=== PATIENT | female | born 1995 | race Caucasian/White ===

== ENCOUNTER 2025-03-30 09:25 | Outpatient (AMB) | payer BC, MEDICAID, SELFPAY ==
--- NOTE | 2025-03-30 09:50 | OBCLNT_ITS ---
Vital Signs 03/30/25 09:51 Height 1.68 m Height Method Stated Weight 107.275 kg Weight Measurement Method Standing Scale BMI 38.1 BP 156/93 H Blood Pressure Source Automatic Cuff Blood Pressure Location Left Upper Arm Position Sitting Respiration 18 Pulse 81 Pulse Source Monitor Temp 96.7 F L Temp Source Oral Pulse Oximetry (%) 99 Oxygen Delivery Method Room Air Allergies/Home Meds Allergies & Medications Allergies No Known Allergies Allergy (Verified 03/30/25 09:52) Medication Reconciliation aspirin 81 mg capsule 81 mg PO QDAY 09/19/23 [History Confirmed 03/30/25] labetalol 300 mg tablet 300 mg PO BID 09/19/23 [History Confirmed 03/30/25] vits no.124-ferrous fum 27 mg iron-folic acid 800 mcg tablet ( Vitamin) tab 10/30/23 [History Confirmed 03/30/25] labetalol 300 mg tablet 300 mg PO BID #60 tabs 11/04/23 [Rx Confirmed 03/30/25] aspirin 81 mg tablet,delayed release (Adult Aspirin Regimen) 81 mg PO QDAY 30 days #30 tabs 03/30/25 [Rx] blood pressure monitor #1 ea 03/30/25 [Rx] doxylamine 10 mg-pyridoxine (vit B6) 10 mg tablet,delayed release (Diclegis) 1 tab PO BID 30 days #60 tabs 03/30/25 [Rx] Intake Visit Data Collection New Patient or Established: Established Patient (seen at [facility] within 3 years) Reason for Visit:: OBI Seen by Clinical Staff ONLY (RN/MA): No 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 1. Little interest or pleasure in doing things: not at all 2. Feeling down, depressed, or hopeless: not at all Total score: 0 PHQ-9 3. Trouble falling or staying asleep, or sleeping too much: Not at all 4. Feeling tired or having little energy: Not at all 5. Poor appetite or overeating: Not at all 6. Feeling bad about yourself - or that you are a failure or have let yourself or your family down: Not at all 7. Trouble concentrating on things, such as reading the newspaper or watching television: Not at all 8. Moving or speaking so slowly that other people could have noticed? - Or the opposite - being so fidgety or restless that you have been moving around a lot more than usual: not at all 9. Thoughts that you would be better off or of hurting yourself in some way: Not at all Total score: 0 If you checked off any problems, how difficult have these problems made it for you to do your work, take care of things at home, or get along with other people?: not difficult at all Source: Developed by Drs. Chilango Danielle, Fabi Rod, Austen Milian and colleagues, with an educational caryl from [employer]. 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 Abuse History Do You Feel Safe at Home: Yes Past Medical History Past Medical History Have you ever been diagnosed with any of the following: Neurological Problems Seizures: No Cardiology Problems Congestive Heart Failure: No Respiratory Problems Chronic Obstructive Pulmonary Disease (COPD): No Stomache/Intestinal Problems Hepatitis: No Gall Bladder Disease: Yes Genital/Urinary Problems Renal Disease: No Reproductive Problems Previous Pregnancies: Yes Endocrine Problems Diabetes Mellitus Type 1: No Diabetes Mellitus Type 2: No Other Problems Hospitalization: No Shingles: No Falls: No Blood Transfusions: No Blood Transfusion Reaction: No Anesthesia Reactions: No Chemotherapy: No Radiation Therapy: No MRSA: No Chicken Pox: Yes Measles: No Mumps: No Cancer: No History of Present Illness HPI Narrative 30 yo for OBI. happy about unplanned . FOB involved. lmp 01/21/25. EDC 10/27/25.IUP 10 week. c/o spotting 1 week. No Bleeding today. chronic hypertention, patient started on labetolol 100 bid and comfirmation visit. stopped taking labetolol because she felt dizzy and light headed. no social habit,no surgery OB Initial Visit OB Flowsheet OB Flowsheet Initial Weight: Not Recorded Date -?-?-?-?-?-?-?-?-?-?-?-?- EGA Weight Edema CTX Effacement BP Fundal ht Pres Dilation Effacement Station Visit Note Alb Glu FHR Mov 03/30/25 -?-?-?-?-?-?-?-?-?-?-?-?- 9w 5d 107.275 kg absent absent 156/93 8.0 30 yo with CHTN for OBC. Denies sab complaints at this time. happy about . advised patient to continue taking labetolol 100 bid. I ordered BP kit and advised patient to check BP at home and work, note for no lifting over 25 pounds, no climbing. OB panel, HCG, HA1c, cmp, .continue PNV, rest,sab precaution, sono for viability, rtc 3 week, NIPT and carrier screen. rtc 3 week absent Menstrual History Menstrual reliability: definite Flow: normal Menstrual regularity: regular Monthly: Yes Age at menarche: 13 On control pills at conception: No OB History : 3 Para: 2 Hx # Pregnancies: 0 Hx Total # of Abortions (Spontaneous & Elective): 0 # of Living Children: 2 Delivery History 1st : date: 03/07/17 sex: male Delivery type: vaginal weight (lbs): 2267.962 g History of depression before or after : No 2nd : date: 11/03/23 sex: male Delivery type: vaginal weight (lbs): 3175.147 g History of depression before or after : No Infection History & Risk Evaluation History of STDs: none HIV risk evaluation: low risk Hepatitis B risk evaluation: low risk Patient or partner has history of Genital Herpes: No Varicella/chicken pox status: immunized Genetic Screening & History Genetic Screening/Teratology Counseling - Includes patient, baby's father, or anyone in either family with: 1. Patient's age 35 years or older as of estimated date of delivery: No 2. Thalassemia (Khmer, Iranian, Mediterranean, or Background); MCV less than 80: No 3. Neural Tube Defect (Meningomyelocele, Spina Bifida, or Anencephaly): No 4. Congenital Heart Defect: No 5. Down Syndrome: No 6. Cosmo-Sachs (Ashkenazi Methodist, Cajun, Swazi [place]): No 7. Asha Disease (Ashkenazi Methodist): No 8. Familial Dysautonomia (Ashkenazi Methodist): No 9. Sickle Cell Disease or Trait (): No 10. Hemophilia or other blood disorders: No 11. Muscular Dystrophy: No 12. Cystic Fibrosis: No 13. Bethel's Chorea: No 14. Mental Retardation/Autism: No 15. Other inherited genetic or chromosomal disorder: No 16. Maternal Metabolic Disorder (EG,TYPE 1 Diabetes, PKU): No 17. Patient or baby's father had a child with defects not listed above: No 18. Recurrent loss or a stillbirth: No 19. Medications (including supplements, vitamins, herbs or otc drugs)/illicit/recreational drugs/alcohol since last menstrual period: No Infection History 1. Live with someone with TB or exposed to TB: No 2. Rash or viral illness since last menstrual period: No 3. Hepatitis B,C: No Other (see comments) Source: [employer] Review of Systems Review of Systems Systems Reviewed: All systems reviewed, normal except as documented Exam General Limitations: no limitations General Appearance: alert, in no apparent distress, comfortable, cooperative, healthy appearing, well developed and well groomed Head Head exam: atraumatic, normocephalic and normal inspection Chest Chest inspection: Present normal inspection and symmetric chest wall rise Resp Respiratory exam: Present normal lung sounds bilaterally Card Cardiovascular exam: Present regular rate, normal rhythm and normal heart sounds Abdominal Abdominal exam: Present soft and normal bowel sounds Psych Psychiatric exam: Present normal affect and normal mood Assessment & Plan Diagnosis / Problem List (1) Encounter for supervision of high risk in first trimester, antepartum: Status: Acute (2) Chronic benign essential hypertension, antepartum: Status: Acute Plan Continue labetalol 100 twice daily. Monitor blood pressure at home. BP kit was ordered for patient. Patient advised to also check blood pressure while at work. Note for light duty including no lifting over 25 pounds and no climbing. OB panel, hCG, CMP, hemoglobin A1c drawn today. NIPT and carrier screens drawn today. TSH next visit. Ultrasound scheduled for viability and dating. Return in 3 weeks OB check Additional Plan Follow Up: 3 Weeks (obc) Office Procedures OB Clinic LOC & Office Proc's Nursing/Assessment Patient Status: Established Patient OB Clinic Nursing Assessment: BP Monitoring, Medication Reconciliation, Update PMH in EMR and Vital Signs OB Clinic Coordination of Care: Consent,records obtained, informed consent, Education Simp Pt/Fam, Lab and Imaging orders and Staff clarify orders Special Needs: Heart tones Established Patient Charge Established Patient Point Assignment: 120 Established Patient Point Charge: EP Level 4 (120-155)
[2025-03-30 09:51] VITALS: BP 156/93; PULSE 81; RESP 18; TEMP 35.9; O2SAT 99; BMI 38.1
== END 2025-03-30 10:20 | disposition home or self-care (01) ==
LOC: HODSOBC 09:25
PROVIDERS: PCP Family Medicine; Referring Provider Family Medicine; Supervising Provider Advanced Practice Midwife; Visit Provider Advanced Practice Midwife
DX: O09.891 Supervision of other high risk pregnancies, first trimester (principal); Z3A.09 9 weeks gestation of pregnancy; O10.011 Pre-existing essential hypertension complicating pregnancy, first trimester; Z79.899 Other long term (current) drug therapy; Z79.82 Long term (current) use of aspirin
CPT/HCPCS: 99214; G0463

== ENCOUNTER → 2025-03-30 | Outpatient (CLI) | payer BC, MEDICAID, SELFPAY ==
[2025-03-30 11:51] LABS: Collection Type, Urine Clean Catch; WBC,Urine 0 /hpf (0-5)
[2025-03-30 12:03] LABS: Basophils % (Auto) 0 % (0-2.5); Eosinophils # (Auto) 0.1 Thou/mm3 (0.0-0.5); Eosinophils % (Auto) 2 % (0-10); Hemoglobin 13.5 g/dL (12.0-16.0); Immature Granulocytes % (Auto) 0 % (0-0); Immature Granulocytes Auto 0.03 Thou/mm3 (0.00-0.00); Lymphocytes # (Auto) 1.5 Thou/mm3 (1.0-4.8); Lymphocytes % (Auto) 21 % (10-50); Mean Corpuscular HGB Conc 35.5 g/dl (31.0-37.0); Mean Corpuscular Hemoglobin 30.2 pg (25.0-35.0); Mean Corpuscular Volume 85 fL (80-100); Monocytes # (Auto) 0.4 Thou/mm3 (0.0-0.8); Monocytes % (Auto) 5 % (0-12); Neutrophils # (Auto) 5.3 Thou/mm3 (1.8-7.7); Neutrophils % (Auto) 71 % (37-80); Nucleated Red Blood Cell % 0 /100 WBC (0); Platelet Count 302 Thou/mm3 (140-440); RDW Standard Deviation 38.8 fL (36.4-46.3); Red Blood Count 4.47 Miln/mm3 (4.00-5.20); White Blood Count 7.5 Thou/mm3 (3.6-11.0)
[2025-03-30 12:13] LABS: Glucose Estimated Average 94 mg/dL (80-131); Hemoglobin A1C 4.9 % Hgb (4.8-6.0)
[2025-03-30 12:20] LABS: Alanine Aminotransferase 24 U/L (10-49); Albumin/Globulin Ratio 1.6 (1.2-2.2); Alkaline Phosphatase 68 U/L (46-116); Anion Gap 7 (7-16); Aspartate Amino Transferase 11 U/L (0-34); BUN/Creatinine Ratio 10 Ratio (12-20); Bilirubin,Total 0.7 mg/dL (0.3-1.2); Blood Urea Nitrogen 6 mg/dL (9-23); Calcium 9.2 mg/dL (8.3-10.6); Calcium (Corrected) 9.2 mg/dL (8.5-10.1); Carbon Dioxide 24.9 mMol/L (20.0-31.0); Chloride 109 mMol/L (98-107); Creatinine (Component) 0.6 mg/dL (0.6-1.3); Globulin 2.5 gm/dL (2.3-3.5); Glucose 92 mg/dL (74-106); Osmolality,Calculated 278 (275-295); Potassium 4.5 mMol/L (3.4-5.1); Sodium 141 mMol/L (136-145); Total Protein 6.5 gm/dL (5.7-8.2); eGFR > 60 See Note
[2025-03-30 12:31] LABS: Bacteria,Urine Rare; Bilirubin,Urine Negative (Negative); Blood,Urine Negative (Negative); Clarity,Urine Clear (Clear/Hazy); Color,Urine Lt-Yellow (Lt Yel-Yel); Culture Indicated,Urine Not Indicated; Glucose, Urine Negative (Negative); Ketones,Urine Negative (Negative); Leukocyte Esterase,Urine Negative (Negative); Nitrite,Urine Negative (Negative); PH,Urine 6.5 (5.0-7.0); Protein,Urine Negative (Neg - Trace); RBC,Urine 2 /hpf (0-3); Specific Gravity,Urine 1.007 (1.001-1.035); Squamous Epithelial Cell,Urine 3 /hpf (0-5); Urobilinogen,Urine Negative mg/dL (0.0-1.0)
[2025-03-30 12:57] LABS: Hepatitis B Surface Antigen Non Reactive (Non React); Hepatitis C Antibody Non Reactive (Non React); Rubella, IgG Antibody Reactive (Immune)
[2025-03-30 13:01] LABS: Syphilis Nonreactive (Nonreactive)
[2025-03-30 14:27] LABS: Glucose,1 Hour PP 50gm Dose 109 mg/dL (80-140)
[2025-03-30 15:58] LABS: Chlamydia trachomatis PCR Negative (Not Detect); Neisseria Gonorrhoeae DNA PCR Negative (Not Detect); Trichomonas Negative (Negative)
[2025-04-02 22:06] LABS: HCV RNA, PCR <15 NOT DETECTED IU/mL
[2025-04-04 07:24] LABS: HCV RNA, PCR Log IU <1.18 NOT DETECTED Log IU/mL; HIV Ag/Ab, 4th Gen NON-REACTIVE; IgG, Serum* 1160 mg/dL (600-1640)
== END | disposition home or self-care (01) ==
PROVIDERS: PCP Family Medicine; Referring Provider Advanced Practice Midwife; Visit Provider Advanced Practice Midwife
DX: Z34.81 Encounter for supervision of other normal pregnancy, first trimester (principal)
CPT/HCPCS: 36415; 80053; 81001; 82784; 82950; 83036; 85025; 86762; 86780; 86803; 86900; 86901; 87340; 87389; 87491; 87522; 87591; 87661

== ENCOUNTER 2025-04-28 09:05 | Outpatient (AMB) | payer MEDICAID, SELFPAY ==
[2025-04-28 09:14] VITALS: BP 143/79; PULSE 80; RESP 18; TEMP 36.2; O2SAT 98; BMI 36.3
--- NOTE | 2025-04-28 09:14 | OBCLNT_ITS ---
Vital Signs 04/28/25 09:14 Height 1.68 m Height Method Stated Weight 102.682 kg Weight Measurement Method Standing Scale BMI 36.3 BP 143/79 H Blood Pressure Source Automatic Cuff Blood Pressure Location Left Upper Arm Position Sitting Respiration 18 Pulse 80 Pulse Source Monitor Temp 97.2 F Temp Source Oral Pulse Oximetry (%) 98 Oxygen Delivery Method Room Air Allergies/Home Meds Allergies & Medications Allergies No Known Allergies Allergy (Verified 04/28/25 09:15) Medication Reconciliation aspirin 81 mg capsule 81 mg PO QDAY 09/19/23 [History Confirmed 04/28/25] labetalol 300 mg tablet 300 mg PO BID 09/19/23 [History Confirmed 04/28/25] vits no.124-ferrous fum 27 mg iron-folic acid 800 mcg tablet ( Vitamin) tab 10/30/23 [History Confirmed 04/28/25] labetalol 300 mg tablet 300 mg PO BID #60 tabs 11/04/23 [Rx Confirmed 04/28/25] aspirin 81 mg tablet,delayed release (Adult Aspirin Regimen) 81 mg PO QDAY 30 days #30 tabs 03/30/25 [Rx Confirmed 04/28/25] blood pressure monitor #1 ea 03/30/25 [Rx Confirmed 04/28/25] doxylamine 10 mg-pyridoxine (vit B6) 10 mg tablet,delayed release (Diclegis) 1 tab PO BID 30 days #60 tabs 03/30/25 [Rx Confirmed 04/28/25] labetalol 100 mg tablet 100 mg PO BID 30 days #60 tabs 04/26/25 [Rx Confirmed 04/28/25] Intake Visit Data Collection New Patient or Established: Established Patient (seen at [facility] within 3 years) Reason for Visit:: OBC Seen by Clinical Staff ONLY (RN/MA): No Sheriff Deputy Required: No Do You Feel Safe at Home: Yes Authorities Contacted: N/A PCP or OBGYN visit in last 3 months: Yes Date of Last PCP or OBGYN visit: 03/30/25 Hx Now: Yes Are you currently on any form of Control: No Pain Present Currently: No Pain Scale Used: Gaming-Dixon/Numerical Pain scale:: 0 Smoking Status Smoking Status: Never smoker Questionnaires Covid-19 Vaccine Questionnaire Has patient been vacinated for Covid-19 Have you been vacinated for Covid-19: Yes PHQ-9 PHQ-2 Over the last 2 weeks, how often have you been bothered by any of the following problems? 1. Little interest or pleasure in doing things: not at all PHQ-9 8. Moving or speaking so slowly that other people could have noticed? - Or the opposite - being so fidgety or restless that you have been moving around a lot more than usual: not at all Source: Developed by Drs. Chilango Danielle, Fabi Rod, Austen Milian and colleagues, with an educational caryl from [employer]. 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 Denies sab complaints at this time. happy about . advised patient to continue taking labetolol 100 bid. I ordered BP kit and advised patient to check BP at home and work, note for no lifting over 25 pounds, no climbing. OB panel, HCG, HA1c, cmp, .continue PNV, rest,sab precaution, sono for viability, rtc 3 week, NIPT and carrier screen. rtc 3 week 04/28/25 -?-?-?-?-?-?-?-?-?-?-?-?- 13w 2d 102.682 kg 143/79 absent unknown 12 145 absent denies SOTO,blurred vision,epigatric pain, no SAB complaints, sono for viability, done. results pending TSH, 24hr urine, uric acid, CMP was done, sab precaution reviewed, NIPT and carrier screen, continue labetolol 100 bid and f/u with OB to review management 4 week JORY Calculator Estimated Delivery Date Method Current WG Current Estimate 11/01/25 Ultrasound #1 13w 2d Other Estimates 10/28/25 LMP (Certain) 13w 6d Office Procedures OB Clinic LOC & Office Proc's Nursing/Assessment Patient Status: Established Patient OB Clinic Nursing Assessment: BP Monitoring, Medication Reconciliation, Update PMH in EMR and Vital Signs OB Clinic Coordination of Care: Complex Care and Chronic Disease 1-5, Consent,records obtained, informed consent and Lab and Imaging orders Special Needs: Heart tones Established Patient Charge Established Patient Point Assignment: 120 Established Patient Point Charge: EP Level 4 (120-155) Assessment & Plan Diagnosis / Problem List (1) Chronic benign essential hypertension, antepartum: Status: Acute (2) Encounter for supervision of high risk in first trimester, antepartum: Status: Acute Plan TSH, 24hr Urine, uric acid/cmp was done, NIPT and carrier screen. schedule with MFM for early anatomy scan. continue labetolol bid and sched with OB to evaluate current management. sab precaution. rtc 4 week Additional Plan Follow Up: 4 Weeks (obc)
== END 2025-04-28 09:25 | disposition home or self-care (01) ==
LOC: HODSOBC 09:05
PROVIDERS: PCP Family Medicine; Referring Provider Family Medicine; Supervising Provider Advanced Practice Midwife; Visit Provider Advanced Practice Midwife
DX: O09.891 Supervision of other high risk pregnancies, first trimester (principal); O10.011 Pre-existing essential hypertension complicating pregnancy, first trimester; Z3A.13 13 weeks gestation of pregnancy; Z79.899 Other long term (current) drug therapy; Z79.82 Long term (current) use of aspirin
CPT/HCPCS: 99214; G0463

== ENCOUNTER 2025-05-25 09:21 | Outpatient (AMB) | payer MEDICAID, SELFPAY ==
[2025-05-25 09:46] VITALS: BP 152/92; PULSE 74; RESP 17; TEMP 36.3; O2SAT 99; BMI 36.3
--- NOTE | 2025-05-25 09:46 | OBCLNT_ITS ---
Vital Signs 05/25/25 09:46 Height 1.68 m Height Method Measured Weight 102.625 kg Weight Measurement Method Standing Scale BMI 36.3 BP 152/92 H Blood Pressure Source Automatic Cuff Blood Pressure Location Right Upper Arm Position Sitting Respiration 17 Pulse 74 Pulse Source Monitor Temp 97.3 F Temp Source Temporal Artery Scan Pulse Oximetry (%) 99 Oxygen Delivery Method Room Air Allergies/Home Meds Allergies & Medications Allergies No Known Allergies Allergy (Verified 05/25/25 09:47) Medication Reconciliation vits no.124-ferrous fum 27 mg iron-folic acid 800 mcg tablet ( Vitamin) tab 10/30/23 [History Confirmed 05/25/25] blood pressure monitor #1 ea 03/30/25 [Rx Confirmed 05/25/25] doxylamine 10 mg-pyridoxine (vit B6) 10 mg tablet,delayed release (Diclegis) 1 tab PO BID 30 days #60 tabs 03/30/25 [Rx Confirmed 05/25/25] labetalol 100 mg tablet 100 mg PO BID 30 days #60 tabs 04/26/25 [Rx Confirmed 05/25/25] Intake Visit Data Collection New Patient or Established: Established Patient (seen at [facility] within 3 years) Reason for Visit:: OBC Seen by Clinical Staff ONLY (RN/MA): No Claim Benefit Specialist Required: No Do You Feel Safe at Home: Yes Authorities Contacted: N/A PCP or OBGYN visit in last 3 months: Yes Date of Last PCP or OBGYN visit: 04/28/25 Hx Now: Yes Are you currently on any form of Control: No Pain Present Currently: No Pain Scale Used: Gaming-Dixon/Numerical Pain scale:: 0 Smoking Status Smoking Status: Never smoker Questionnaires Covid-19 Vaccine Questionnaire Has patient been vacinated for Covid-19 Have you been vacinated for Covid-19: No PHQ-9 PHQ-2 Over the last 2 weeks, how often have you been bothered by any of the following problems? 1. Little interest or pleasure in doing things: not at all 2. Feeling down, depressed, or hopeless: not at all Total score: 0 PHQ-9 3. Trouble falling or staying asleep, or sleeping too much: Not at all 4. Feeling tired or having little energy: Not at all 5. Poor appetite or overeating: Not at all 6. Feeling bad about yourself - or that you are a failure or have let yourself or your family down: Not at all 7. Trouble concentrating on things, such as reading the newspaper or watching television: Not at all 8. Moving or speaking so slowly that other people could have noticed? - Or the opposite - being so fidgety or restless that you have been moving around a lot more than usual: not at all 9. Thoughts that you would be better off or of hurting yourself in some way: Not at all Total score: 0 If you checked off any problems, how difficult have these problems made it for you to do your work, take care of things at home, or get along with other people?: not difficult at all Source: Developed by Drs. Chilango Danielle, Fabi Rod, Austen Milian and colleagues, with an educational caryl from [employer]. 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 Patient reports headaches, denies VC, and epigastric pain. - Steph Flower is a 30-year-old female at 17 weeks and 1 day gestation presenting for a routine visit. - Obstetrical history: - Two previous full-term vaginal deliveries - First baby had intrauterine growth restriction (IUGR), weighing 2200 grams - Second baby weighed 3200 grams - Medical history: - Chronic hypertension, managed with labetalol 100 mg twice daily - Has a blood pressure monitoring kit at home - Current : - Estimated due date: October 2025 (based on 82-hxzm-4-day ultrasound on 04/06/2025) - Started care with CNM in this office - Chief complaint: - Reports experiencing headaches, but otherwise feels okay - Has tried Tylenol for headache relief, but was unsure of proper dosage - movement: - Patient reports feeling initial movements Care OB Visit Log OB Flowsheet Initial Weight: Not Recorded Date -?-?-?-?-?-?-?-?-?-?-?-?- EGA Weight BP Alb Glu CTX Pres Fundal ht FHR Mov Dilation Station Effacement Hx Notes Visit Note 03/30/25 -?-?-?-?-?-?-?-?-?-?-?-?- 9w 1d 107.275 kg 156/93 absent 8.0 absen t 30 yo with CHTN for OBC. Denies sab complaints at this time. happy about . advised patient to continue taking labetolol 100 bid. I ordered BP kit and advised patient to check BP at home and work, note for no lifting over 25 pounds, no climbing. OB panel, HCG, HA1c, cmp, .continue PNV, rest,sab precaution, sono for viability, rtc 3 week, NIPT and carrier screen. rtc 3 week 04/28/25 -?-?-?-?-?-?-?-?-?-?-?-?- 13w 2d 102.682 kg 143/79 absent unknown 12 145 absent denies SOTO,blurred vision,epigatric pain, no SAB complaints, sono for viability, done. results pending TSH, 24hr urine, uric acid, CMP was done, sab precaution reviewed, NIPT and carrier screen, continue labetolol 100 bid and f/u with OB to review management 4 week 05/25/25 -?-?-?-?-?-?-?-?-?-?-?-?- 17w 1d 102.625 kg 152/92 absent 137 abse nt at 17w1d, JORY 10/2025. Chronic HTN on labetalol 100mg BID. Reports headaches. Hx IUGR (2200g weight). FHR 137, female fetus. Genetics and pre-eclampsia labs normal. Thyroid low but normal for . Co ntinue labetalol, Tylenol up to 2000mg daily for SOTO, anatomy scan at [facility] on , FU 4 weeks after scan to review results. JORY Calculator Estimated Delivery Date Method Current WG Current Estimate 11/01/25 Ultrasound #1 17w 5d Other Estimates 10/28/25 LMP (Certain) 18w 2d Exam General General Appearance: alert, in no apparent distress and healthy appearing Head Head exam: atraumatic Neck Neck exam: Present normal inspection and trachea midline Chest Chest inspection: Present normal inspection and symmetric chest wall rise External exam: Present normal external exam; Absent tenderness Neuro Neurological exam: Present oriented X3 Psych Psychiatric exam: Present normal affect and normal mood Office Procedures OB Clinic LOC & Office Proc's Nursing/Assessment Patient Status: Established Patient OB Clinic Nursing Assessment: Medication Reconciliation, Update PMH in EMR and Vital Signs OB Clinic Coordination of Care: Complex Care and Chronic Disease 1-5, Consent,records obtained, informed consent, Lab and Imaging orders and Staff clarify orders Special Needs: Heart tones Established Patient Charge Established Patient Point Assignment: 115 Established Patient Point Charge: EP Level 3 (80-115) Assessment & Plan Diagnosis / Problem List (1) Chronic benign essential hypertension, antepartum: Status: Acute Plan Problem List - - Chronic hypertension - Headaches - Intrauterine growth restriction (IUGR) in previous Assessment 30-year-old at 17 weeks 1 day gestation with JORY 10/2025 based on 10w1d ultrasound. Patient has chronic hypertension managed with labetalol 100mg BID. History of IUGR in first (2200g weight). Current notable for reported headaches. Ultrasound performed in office showing normal heart rate of 137 bpm. Genetic testing and pre-eclampsia screening labs reviewed, all within normal limits for . Thyroid function noted to be low but deemed normal for . gender determined to be female. Plan - Continue labetalol 100 mg twice daily for chronic hypertension - Tylenol up to 2000 mg per day for headaches (500 mg extra strength, up to 4 tablets; or 300 mg regular strength, up to 6 tablets) - Follow up appointment in 4 weeks - Attend scheduled anatomy scan at [facility] on the of next month - Schedule next appointment after the to review [facility] ultrasound reports This visit does not meet the criteria for the provided format request. The patient is at 17 weeks and 1 day gestation, which is less than 20 weeks. Additionally, this is not an initial visit. Therefore, the format request is not applicable to this specific visit.
== END 2025-05-25 10:44 | disposition home or self-care (01) ==
LOC: HODSOBC 09:21
PROVIDERS: PCP Obstetrics & Gynecology; Referring Provider Obstetrics & Gynecology; Supervising Provider Obstetrics & Gynecology; Visit Provider Obstetrics & Gynecology
DX: O09.892 Supervision of other high risk pregnancies, second trimester (principal); O10.912 Unspecified pre-existing hypertension complicating pregnancy, second trimester; Z3A.17 17 weeks gestation of pregnancy; Z87.59 Personal history of other complications of pregnancy, childbirth and the puerperium; Z79.899 Other long term (current) drug therapy
CPT/HCPCS: 99213; G0463

== ENCOUNTER 2025-07-06 09:48 | Outpatient (AMB) | payer MEDICAID, SELFPAY ==
[2025-07-06 10:02] VITALS: BP 143/79; PULSE 87; RESP 17; TEMP 37.1; O2SAT 98; BMI 36.3
--- NOTE | 2025-07-06 10:02 | OBCLNT_ITS ---
Vital Signs 07/06/25 10:02 Height 1.68 m Height Method Stated Weight 102.512 kg Weight Measurement Method Standing Scale BMI 36.3 BP 143/79 H Blood Pressure Source Automatic Cuff Blood Pressure Location Right Upper Arm Position Sitting Respiration 17 Pulse 87 Pulse Source Monitor Temp 98.7 F Temp Source Temporal Artery Scan Pulse Oximetry (%) 98 Oxygen Delivery Method Room Air Allergies/Home Meds Allergies & Medications Allergies No Known Allergies Allergy (Verified 09/06/25 09:29) Medication Reconciliation vits no.124-ferrous fum 27 mg iron-folic acid 800 mcg tablet ( Vitamin) tab 10/30/23 [History Confirmed 09/06/25] blood pressure monitor #1 ea 03/30/25 [Rx Confirmed 09/06/25] aspirin 81 mg tablet 162 mg (2 x 81 mg) PO QDAY 90 days #180 tabs 07/06/25 [Rx Confirmed 09/06/25] labetalol 400 mg tablet 400 mg PO BID 30 days #60 tabs 08/18/25 [Rx Confirmed 09/06/25] nifedipine 30 mg tablet,extended release 30 mg PO QDAY 30 days #30 tabs 08/18/25 [Rx Confirmed 09/06/25] Intake Visit Data Collection New Patient or Established: Established Patient (seen at [facility] within 3 years) Reason for Visit:: OBC 23W Seen by Clinical Staff ONLY (RN/MA): No [employer] Required: No Do You Feel Safe at Home: Yes Authorities Contacted: N/A PCP or OBGYN visit in last 3 months: Yes Date of Last PCP or OBGYN visit: 05/25/25 Hx Now: Yes Are you currently on any form of Control: No Pain Present Currently: No Pain Scale Used: Gaming-Dixon/Numerical Pain scale:: 0 Smoking Status Smoking Status: Never smoker Questionnaires Covid-19 Vaccine Questionnaire Has patient been vacinated for Covid-19 Have you been vacinated for Covid-19: No PHQ-9 PHQ-2 Over the last 2 weeks, how often have you been bothered by any of the following problems? 1. Little interest or pleasure in doing things: not at all 2. Feeling down, depressed, or hopeless: not at all Total score: 0 PHQ-9 3. Trouble falling or staying asleep, or sleeping too much: Not at all 4. Feeling tired or having little energy: Not at all 5. Poor appetite or overeating: Not at all 6. Feeling bad about yourself - or that you are a failure or have let yourself or your family down: Not at all 7. Trouble concentrating on things, such as reading the newspaper or watching television: Not at all 8. Moving or speaking so slowly that other people could have noticed? - Or the opposite - being so fidgety or restless that you have been moving around a lot more than usual: not at all 9. Thoughts that you would be better off or of hurting yourself in some way: Not at all Total score: 0 If you checked off any problems, how difficult have these problems made it for you to do your work, take care of things at home, or get along with other people?: not difficult at all Source: Developed by Drs. Chilango Danielle, Fabi Rod, Austen Milian and colleagues, with an educational caryl from [employer]. 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 Denies sab complaints at this time. happy about . advised patient to continue taking labetolol 100 bid. I ordered BP kit and advised patient to check BP at home and work, note for no lifting over 25 pounds, no climbing. OB panel, HCG, HA1c, cmp, .continue PNV, rest,sab precaution, sono for viability, rtc 3 week, NIPT and carrier screen. rtc 3 week 04/28/25 -?-?-?-?-?-?-?-?-?-?-?-?- 13w 2d 102.682 kg 143/79 absent unknown 12 145 absent denies SOTO,blurred vision,epigatric pain, no SAB complaints, sono for viability, done. results pending TSH, 24hr urine, uric acid, CMP was done, sab precaution reviewed, NIPT and carrier screen, continue labetolol 100 bid and f/u with OB to review management 4 week 05/25/25 -?-?-?-?-?-?-?-?-?-?-?-?- 17w 1d 102.625 kg 152/92 absent 137 abse nt at 17w1d, JORY 10/2025. Chronic HTN on labetalol 100mg BID. Reports headaches. Hx IUGR (2200g weight). FHR 137, female fetus. Genetics and pre-eclampsia labs normal. Thyroid low but normal for . Co ntinue labetalol, Tylenol up to 2000mg daily for SOTO, anatomy scan at [facility] on , FU 4 weeks after scan to review results. 07/06/25 -?-?-?-?-?--?-?-?-?-?-?-?- 23w 1d 102.512 kg 143/79 absent unknown 24 145 active - Steph Flower is a 30-year-old female, 2 para 1, at 23 weeks and 1 day gestation with a history of chronic hypertension presenting for routine care. - She reports the baby is active and mov ing well. - She is currently taking labetalol 100 mg twice daily for blood pressure management and requests a refill for aspirin. - She reports significant work-related s tress at her job at [employer], describing her workplace as very high demanding. 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 - She maintains activity at home with mo rning and afternoon walks and stays active throughout the day. - She expresses desire to remain active but finds work environment overwhelming. - Increase labet alol from 100 mg to 200 mg (2 tablets in morning, 2 tablets at night) - Refill aspirin prescription - Provide work restriction letter for hi gh-risk - Order glucose tolerance test - Provide lab phone number for patient t o schedule glucose test 08/18/25 -?-?-?-?-?-?-?-?-?-?-?-?- 29w 2d 104.78 kg 147/83 absent unknown 30 145 active - Patient continues to have elevated blood pressure - Recent readin/83 mmHg - Currently taking labetalol 400 mg twic e daily - Dose was increased at last appointme nt - Patient reports feeling normal despite elevated blood pressure - States she doesn't feel nothing - No other symptoms or complaints reported - Add Procardia as a second antihypertensive medication - Continue labetalol 400 mg twice daily - Follow up in one week for blood pressu re check - monitoring twice weekly (Mondays and ) for 20 minutes per session, starting at 32 weeks gestation - Prescription for labetalol to be sent - Prescription for Procardia already sen t: 30 mg with breakfast and at night, and with lunch 08/23/25 -?-?-?-?-?-?-?-?-?-?-?-?- 30w 0d 104.496 kg 131/84 absent cephalic 32 13 0 active - Patient reports feeling really good and more comfortable compared to previous visits. - Blood pressure has improved: - Current readin/84 mmHg - Previous reading 4 days ago: 147/83 mmHg - Medication changes: - Labetalol increased to 400 mg - Procardia added to regimen - Patient is taking medications as presc ribed: - One medication in the morning - One medication in the evening - Another medication in the middle of the day No contractions, LOF, VB and reports goo d FM. Denies SOTO, VC, and epigastric pain. Plan - Continue current medication regimen (L abetalol 400mg and Procardia) - Follow up in 2 weeks - Monitor for severe headache unrelieved by Tylenol, visual disturbances (tight band sensation or light flashes/floaters), and right-sided pain in liver/gallbladder area - Present to hospital if any of the abov e symptoms occur 09/06/25 -?-?-?-?-?-?-?-?-?-?-?-?- 32w 0d 107.104 kg 128/80 absent cephalic 34 13 9 active - History of intrauterine growth restriction (IUGR) in a previous . - Current estimated weight (EFW) is in the 39th percentile. - Currently on medication regimen for bl ood pressure control: - Labetalol 400 mg twice daily - Procardia 30 mg once daily - Blood pressure at this visit: 128/80 m mHg - heart rate: 139-140 bpm, noted a s normal - Patient reports adherence to twice-[place] anesthesia appointments at the hospital - No new symptoms or concerns reported - Continue current medications: labetalol 400mg BID and Procardia 30mg daily - Administer Tdap vaccine today - Continue with scheduled ultrasound angelica ointment in [place] for measurements and Doppler studies - Transition to weekly appointments from now onwards - Continue twice-weekly anesthesia appoi ntments at the hospital JORY Calculator Estimated Delivery Date Method Current WG Current Estimate 11/01/25 Ultrasound #1 33w 4d Other Estimates 10/28/25 LMP (Certain) 34w 1d Assessment & Plan Diagnosis / Problem List (1) Chronic benign essential hypertension, antepartum: Status: Acute Plan Problem List - Chronic hypertension - Assessment 30-year-old 2 para 1 at 23 weeks 1 day gestation with chronic hypertension presenting for routine care. Blood pressure today is 143/79, which represents improvement from previous readings in the 150s range. Patient is currently on labetalol 100 mg twice daily with plan to increase to 200 mg twice daily due to ongoing hypertension. 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 activity is reported as normal by patient. Plan - Increase labetalol from 100 mg to 200 mg (2 tablets in morning, 2 tablets at night) - Refill aspirin prescription - Provide work restriction letter for high-risk - Order glucose tolerance test - Provide lab phone number for patient to schedule glucose test 1. Progress Reviewed gestational age, growth, and heart rate. Planned frequent visits (every 2 weeks until 36 weeks, then weekly). 2. Instructed patient to monitor movements and report decreases immediately. 3. Testing Counseled on routine third-trimester labs per guidelines. Discussed potential need for ultrasound or monitoring based on risk factors. 4. Preeclampsia Precaution Educated on preeclampsia signs: severe headache, vision changes, right upper quadrant pain, sudden swelling. Advised urgent reporting of symptoms and discussed blood pressure monitoring if high risk. 5. Labor Precautions Reviewed labor signs: regular contractions, pelvic pressure, back pain, bleeding, or fluid leakage. Instructed to seek immediate care for these symptoms. 6. Lifestyle and Delivery Preparation Reinforced vitamins, nutrition, and safe activity. Discussed plan, pain management, and . Advised on labor preparation (e.g., hospital bag) and expectations. 7. Psychosocial Support Assessed emotional well-being and offered resources for mental health or parenting support.
== END 2025-07-06 10:58 | disposition home or self-care (01) ==
LOC: HODSOBC 09:48
PROVIDERS: PCP Obstetrics & Gynecology; Referring Provider Obstetrics & Gynecology; Supervising Provider Obstetrics & Gynecology; Visit Provider Obstetrics & Gynecology
DX: O09.892 Supervision of other high risk pregnancies, second trimester (principal); O10.012 Pre-existing essential hypertension complicating pregnancy, second trimester; Z79.899 Other long term (current) drug therapy; Z3A.23 23 weeks gestation of pregnancy
CPT/HCPCS: 99213; G0463

== ENCOUNTER 2025-08-12 13:04 | Outpatient (AMB) | payer MEDICAID, SELFPAY ==
[2025-08-12 13:14] VITALS: BP 147/81; PULSE 113; RESP 16; TEMP 36.8; O2SAT 98; BMI 36.8
--- NOTE | 2025-08-12 13:14 | OBCLNT_ITS ---
Vital Signs 08/12/25 13:14 Height 1.68 m Height Method Stated Weight 104.099 kg Weight Measurement Method Standing Scale BMI 36.8 BP 147/81 H Blood Pressure Source Automatic Cuff Blood Pressure Location Left Upper Arm Position Sitting Respiration 16 Pulse 113 H Pulse Source Monitor Temp 98.2 F Temp Source Oral Pulse Oximetry (%) 98 Oxygen Delivery Method Room Air Allergies/Home Meds Allergies & Medications Allergies No Known Allergies Allergy (Verified 09/06/25 09:29) Medication Reconciliation vits no.124-ferrous fum 27 mg iron-folic acid 800 mcg tablet ( Vitamin) tab 10/30/23 [History Confirmed 09/06/25] blood pressure monitor #1 ea 03/30/25 [Rx Confirmed 09/06/25] aspirin 81 mg tablet 162 mg (2 x 81 mg) PO QDAY 90 days #180 tabs 07/06/25 [Rx Confirmed 09/06/25] labetalol 400 mg tablet 400 mg PO BID 30 days #60 tabs 08/18/25 [Rx Confirmed 09/06/25] nifedipine 30 mg tablet,extended release 30 mg PO QDAY 30 days #30 tabs 08/18/25 [Rx Confirmed 09/06/25] Intake Visit Data Collection New Patient or Established: Established Patient (seen at [facility] within 3 years) Reason for Visit:: OBC Seen by Clinical Staff ONLY (RN/MA): No [employer] Required: No Do You Feel Safe at Home: Yes Authorities Contacted: N/A PCP or OBGYN visit in last 3 months: Yes Date of Last PCP or OBGYN visit: 07/06/25 Hx Now: Yes Are you currently on any form of Control: No Pain Present Currently: No Pain Scale Used: Gaming-Dixon/Numerical Pain scale:: 0 Smoking Status Smoking Status: Never smoker Questionnaires Covid-19 Vaccine Questionnaire Has patient been vacinated for Covid-19 Have you been vacinated for Covid-19: Yes PHQ-9 PHQ-2 Over the last 2 weeks, how often have you been bothered by any of the following problems? 1. Little interest or pleasure in doing things: not at all 2. Feeling down, depressed, or hopeless: not at all Total score: 0 PHQ-9 3. Trouble falling or staying asleep, or sleeping too much: Not at all 4. Feeling tired or having little energy: Not at all 5. Poor appetite or overeating: Not at all 6. Feeling bad about yourself - or that you are a failure or have let yourself or your family down: Not at all 7. Trouble concentrating on things, such as reading the newspaper or watching television: Not at all 8. Moving or speaking so slowly that other people could have noticed? - Or the opposite - being so fidgety or restless that you have been moving around a lot more than usual: not at all 9. Thoughts that you would be better off or of hurting yourself in some way: Not at all Total score: 0 If you checked off any problems, how difficult have these problems made it for you to do your work, take care of things at home, or get along with other people?: not difficult at all Source: Developed by Drs. Chilango Danielle, Fabi Rod, Austen Milian and colleagues, with an educational caryl from [employer]. 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 Denies sab complaints at this time. happy about . advised patient to continue taking labetolol 100 bid. I ordered BP kit and advised patient to check BP at home and work, note for no lifting over 25 pounds, no climbing. OB panel, HCG, HA1c, cmp, .continue PNV, rest,sab precaution, sono for viability, rtc 3 week, NIPT and carrier screen. rtc 3 week 04/28/25 -?-?-?-?-?-?-?-?-?-?-?-?- 13w 2d 102.682 kg 143/79 absent unknown 12 145 absent denies SOTO,blurred vision,epigatric pain, no SAB complaints, sono for viability, done. results pending TSH, 24hr urine, uric acid, CMP was done, sab precaution reviewed, NIPT and carrier screen, continue labetolol 100 bid and f/u with OB to review management 4 week 05/25/25 -?-?-?-?-?-?-?-?-?-?-?-?- 17w 1d 102.625 kg 152/92 absent 137 abse nt at 17w1d, JORY 10/2025. Chronic HTN on labetalol 100mg BID. Reports headaches. Hx IUGR (2200g weight). FHR 137, female fetus. Genetics and pre-eclampsia labs normal. Thyroid low but normal for . Co ntinue labetalol, Tylenol up to 2000mg daily for SOTO, anatomy scan at [facility] on , FU 4 weeks after scan to review results. 07/06/25 -?-?-?-?-?-?-?-?-?-?-?-?- 23w 1d 102.512 kg 143/79 absent unknown 24 145 active - Steph Flower is a 30-year-old female, 2 para 1, at 23 weeks and 1 day gestation with a history of chronic hypertension presenting for routine care. - She reports the baby is active and mov ing well. - She is currently taking labetalol 100 mg twice daily for blood pressure management and requests a refill for aspirin. - She reports significant work-related s tress at her job at [employer] in [place], describing her workplace as very high demanding. 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 - She maintains activity at home with mo rning and afternoon walks and stays active throughout the day. - She expresses desire to remain active but finds work environment overwhelming. - Increase labet alol from 100 mg to 200 mg (2 tablets in morning, 2 tablets at night) - Refill aspirin prescription - Provide work restriction letter for hi gh-risk - Order glucose tolerance test - Provide lab phone number for patient t o schedule glucose test 08/12/25 -?-?-?-?-?-?-?-?-?-?-?-?- 28w 3d 104.099 kg 147/81 absent unknown 28 141 active - Blood pressure today is 143/79 mmHg, improved from 154/14 mmHg at the last visit. - Patient reports adherence to prescribe d labetalol, which was increased to 200 mg at the last visit. - She takes her medication at 7 AM joycelyn ly. - Patient states she feels fine and has been watching her diet. - Denies any diet-related effects on blo od pressure when informed by the provider. - Continues to take prescribed aspirin. Plan - Increase labetalol to 400 mg twice joycelyn ly - Continue aspirin - Follow up in 1 week for blood pressure check - If blood pressure not controlled at ne xt visit, consider adding second medication (Procardia) - Ultrasound results to be scanned into patient's chart 08/18/25 -?-?-?-?-?-?-?-?-?-?-?-?- 29w 2d 104.78 kg 147/83 absent unknown 30 145 active - Patient continues to have elevated blood pressure - Recent readin/83 mmHg - Currently taking labetalol 400 mg twic e daily - Dose was increased at last appointme nt - Patient reports feeling normal despite elevated blood pressure - States she doesn't feel nothing - No other symptoms or complaints reported - Add Procardia as a second antih ypertensive medication - Continue labetalol 400 mg twice daily - Follow up in one week for blood pressu re check - monitoring twice weekly (Mondays and ) for 20 minutes per session, starting at 32 weeks gestation - Prescription for labetalol to be sent - Prescription for Procardia already sen t: 30 mg with breakfast and at night, and with lunch 08/23/25 -?-?-?-?-?-?-?-?-?--?-?-?- 30w 0d 104.496 kg 131/84 absent cephalic 32 13 0 active - Patient reports feeling really good and more comfortable compared to previous visits. - Blood pressure has improved: - Current readin/84 mmHg - Previous reading 4 days ago: 147/83 mmHg - Medication changes: - Labetalol increased to 400 mg - Procardia added to regimen - Patient is taking medications as presc ribed: - One medication in the morning - One medication in the evening - Another medication in the middle of the day No contractions, LOF, VB and reports goo d FM. Denies SOTO, VC, and epigastric pain. Plan - Continue current medication regimen (L abetalol 400mg and Procardia) - Follow up in 2 weeks - Monitor for severe headache unrelieved by Tylenol, visual disturbances (tight band sensation or light flashes/floaters), and right-sided pain in liver/gallbladder area - Present to hospital if any of the abov e symptoms occur 09/06/25 -?-?-?-?-?-?-?-?-?-?-?-?- 32w 0d 107.104 kg 128/80 absent cephalic 34 13 9 active - History of intrauterine growth restriction (IUGR) in a previous . - Current estimated weight (EFW) is in the 39th percentile. - Currently on medication regimen for bl ood pressure control: - Labetalol 400 mg twice daily - Procardia 30 mg once daily - Blood pressure at this visit: 128/80 m mHg - heart rate: 139-140 bpm, noted a s normal - Patient reports adherence to twice-[place] anesthesia appointments at the hospital - No new symptoms or concerns reported - Continue current medications: labetalol 400mg BID and Procardia 30mg daily - Administer Tdap vaccine today - Continue with scheduled ultrasound angelica ointment in [place] for measurements and Doppler studies - Transition to weekly appointments from now onwards - Continue twice-weekly anesthesia appoi ntments at the hospital JORY Calculator Estimated Delivery Date Method Current WG Current Estimate 11/01/25 Ultrasound #1 33w 4d Other Estimates 10/28/25 LMP (Certain) 34w 1d Notes Visit Date: 08/12/25 Last Updated by: Juwan Harvey MD Laboratory, Imaging, and Diagnostic Test Results - Ultrasound (07/27/2025): - Gestational age: 28 weeks 3 days - measurements: Appropriate - Estimated weight: 39th percentile - Amniotic fluid: Normal - anatomy: Normal - Placenta: Posterior - position: Breech Assessment & Plan Diagnosis / Problem List (1) Chronic benign essential hypertension, antepartum: Status: Acute Plan Problem List - Chronic hypertension in - 3 para 2 - at 28 weeks and 3 days gestation Assessment at 28 weeks and 3 days gestation with chronic hypertension, presenting with elevated blood pressure of 143/79. Previous labetalol dose of 200 mg was insufficient, with blood pressure recorded at 154/14 during the visit. assessment via ultrasound at 27 weeks showed appropriate measurements, 39th percentile for weight, normal amniotic fluid, normal anatomy, and posterior placenta. heart rate auscultated at 141 bpm, which is within normal range. Plan - Increase labetalol to 400 mg twice daily - Continue aspirin - Follow up in 1 week for blood pressure check - If blood pressure not controlled at next visit, consider adding second medication (Procardia) - Ultrasound results to be scanned into patient's chart 1. Progress Reviewed gestational age, growth, and heart rate. Planned frequent visits (every 2 weeks until 36 weeks, then weekly). 2. Instructed patient to monitor movements and report decreases immediately. 3. Testing Counseled on routine third-trimester labs per guidelines. Discussed potential need for ultrasound or monitoring based on risk factors. 4. Preeclampsia Precaution Educated on preeclampsia signs: severe headache, vision changes, right upper quadrant pain, sudden swelling. Advised urgent reporting of symptoms and discussed blood pressure monitoring if high risk. 5. Labor Precautions Reviewed labor signs: regular contractions, pelvic pressure, back pain, bleeding, or fluid leakage. Instructed to seek immediate care for these symptoms. 6. Lifestyle and Delivery Preparation Reinforced vitamins, nutrition, and safe activity. Discussed plan, pain management, and . Advised on labor preparation (e.g., hospital bag) and expectations. 7. Psychosocial Support Assessed emotional well-being and offered resources for mental health or parenting support.
== END 2025-08-12 13:19 | disposition home or self-care (01) ==
LOC: HODSOBC 13:04
PROVIDERS: Supervising Provider Obstetrics & Gynecology; Visit Provider Obstetrics & Gynecology
DX: O09.893 Supervision of other high risk pregnancies, third trimester (principal); O10.013 Pre-existing essential hypertension complicating pregnancy, third trimester; Z3A.28 28 weeks gestation of pregnancy; Z79.899 Other long term (current) drug therapy
CPT/HCPCS: 99213; G0463

== ENCOUNTER 2025-08-18 15:18 | Outpatient (AMB) | payer MEDICAID, SELFPAY ==
[2025-08-18 15:48] VITALS: BP 147/83; PULSE 107; RESP 16; TEMP 36.2; O2SAT 98; BMI 37.1
--- NOTE | 2025-08-18 15:48 | OBCLNT_ITS ---
Vital Signs 08/18/25 15:48 Height 1.68 m Height Method Stated Weight 104.78 kg Weight Measurement Method Standing Scale BMI 37.1 BP 147/83 H Blood Pressure Source Automatic Cuff Blood Pressure Location Left Upper Arm Position Sitting Respiration 16 Pulse 107 H Pulse Source Monitor Temp 97.2 F Temp Source Oral Pulse Oximetry (%) 98 Oxygen Delivery Method Room Air Allergies/Home Meds Allergies & Medications Allergies No Known Allergies Allergy (Verified 08/18/25 15:49) Medication Reconciliation vits no.124-ferrous fum 27 mg iron-folic acid 800 mcg tablet ( Vitamin) tab 10/30/23 [History Confirmed 08/18/25] blood pressure monitor #1 ea 03/30/25 [Rx Confirmed 08/18/25] doxylamine 10 mg-pyridoxine (vit B6) 10 mg tablet,delayed release (Diclegis) 1 tab PO BID 30 days #60 tabs 03/30/25 [Rx Confirmed 08/18/25] aspirin 81 mg tablet 162 mg (2 x 81 mg) PO QDAY 90 days #180 tabs 07/06/25 [Rx Confirmed 08/18/25] labetalol 100 mg tablet 200 mg (2 x 100 mg) PO BID 30 days #120 tabs 07/06/25 [Rx Confirmed 08/18/25] labetalol 400 mg tablet 400 mg PO BID 30 days #60 tabs 08/18/25 [Rx] nifedipine 30 mg tablet,extended release 30 mg PO QDAY 30 days #30 tabs 08/18/25 [Rx] Intake Visit Data Collection New Patient or Established: Established Patient (seen at [facility] within 3 years) Reason for Visit:: OBC Seen by Clinical Staff ONLY (RN/MA): No Manager Corporate Strategy Required: No Do You Feel Safe at Home: Yes Authorities Contacted: N/A PCP or OBGYN visit in last 3 months: Yes Date of Last PCP or OBGYN visit: 08/12/25 Hx Now: Yes Are you currently on any form of Control: No Pain Present Currently: No Pain Scale Used: Gaming-Dixon/Numerical Pain scale:: 0 Smoking Status Smoking Status: Never smoker Questionnaires Covid-19 Vaccine Questionnaire Has patient been vacinated for Covid-19 Have you been vacinated for Covid-19: Yes PHQ-9 PHQ-2 Over the last 2 weeks, how often have you been bothered by any of the following problems? 1. Little interest or pleasure in doing things: not at all 2. Feeling down, depressed, or hopeless: not at all Total score: 0 PHQ-9 3. Trouble falling or staying asleep, or sleeping too much: Not at all 4. Feeling tired or having little energy: Not at all 5. Poor appetite or overeating: Not at all 6. Feeling bad about yourself - or that you are a failure or have let yourself or your family down: Not at all 7. Trouble concentrating on things, such as reading the newspaper or watching television: Not at all 8. Moving or speaking so slowly that other people could have noticed? - Or the opposite - being so fidgety or restless that you have been moving around a lot more than usual: not at all 9. Thoughts that you would be better off or of hurting yourself in some way: Not at all Total score: 0 If you checked off any problems, how difficult have these problems made it for you to do your work, take care of things at home, or get along with other people?: not difficult at all Source: Developed by Drs. Chilango Danielle, Fabi Rod, Austen Milian and colleagues, with an educational caryl from [employer]. 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 Denies sab complaints at this time. happy about . advised patient to continue taking labetolol 100 bid. I ordered BP kit and advised patient to check BP at home and work, note for no lifting over 25 pounds, no climbing. OB panel, HCG, HA1c, cmp, .continue PNV, rest,sab precaution, sono for viability, rtc 3 week, NIPT and carrier screen. rtc 3 week 04/28/25 -?-?-?-?-?-?-?-?-?-?-?-?- 13w 2d 102.682 kg 143/79 absent unknown 12 145 absent denies SOTO,blurred vision,epigatric pain, no SAB complaints, sono for viability, done. results pending TSH, 24hr urine, uric acid, CMP was done, sab precaution reviewed, NIPT and carrier screen, continue labetolol 100 bid and f/u with OB to review manage ment 4 week 05/25/25 -?-?-?-?-?-?-?-?-?-?-?-?- 17w 1d 102.625 kg 152/92 absent 137 abse nt at 17w1d, JORY 10/2025. Chronic HTN on labetalol 100mg BID. Reports headaches. Hx IUGR (2200g weight). FHR 137, female fetus. Genetics and pre-eclampsia labs normal. Thyroid low but normal for . Co ntinue labetalol, Tylenol up to 2000mg daily for SOTO, anatomy scan at [facility] on , FU 4 weeks after scan to review results. 08/18/25 -?-?-?-?-?-?-?-?-?-?-?-?- 29w 2d 104.78 kg 147/83 absent unknown 30 145 active - Patient continues to have elevated blood pressure - Recent readin/83 mmHg - Currently taking labetalol 400 mg twic e daily - Dose was increased at last appointme nt - Patient reports feeling normal despite elevated blood pressure - States she doesn't feel nothing - No other symptoms or complaints reported - Add Procardia as a second antihypertensive medication - Continue labetalol 400 mg twice daily - Follow up in one week for blood pressu re check - monitoring twice weekly (Mondays and ) for 20 minutes per session, starting at 32 weeks gestation - Prescription for labetalol to be sent - Prescription for Procardia already sen t: 30 mg with breakfast and at night, and with lunch JORY Calculator Estimated Delivery Date Method Current WG Current Estimate 11/01/25 Ultrasound #1 29w 5d Other Estimates 10/28/25 LMP (Certain) 30w 2d Office Procedures OB Clinic LOC & Office Proc's Nursing/Assessment Patient Status: Established Patient OB Clinic Nursing Assessment: Medication Reconciliation, Update PMH in EMR and Vital Signs OB Clinic Coordination of Care: Education Complex Pt/Fam, Consent,records obtained, informed consent, Lab and Imaging orders, Results/Orders obtained and Staff clarify orders Special Needs: Heart tones Established Patient Charge Established Patient Point Assignment: 115 Established Patient Point Charge: EP Level 3 (80-115) Assessment & Plan Diagnosis / Problem List (1) Chronic benign essential hypertension, antepartum: Status: Acute (2) Encounter for supervision of high risk in first trimester, antepartum: Status: Acute (3) Gestational [-induced] hypertension without significant proteinuri a, third trimester: Status: Acute Plan Problem List - Chronic hypertension - , 29 weeks and 2 days Assessment 2 para 0 at 29 weeks and 2 days gestation with chronic hypertension. Patient continues to have elevated blood pressure (147/83) despite increased labetalol dosage to 400 mg twice daily. heart rate auscultated at 136 bpm, noted as normal. Patient reports feeling asymptomatic despite elevated blood pressure readings. Plan - Add Procardia as a second antihypertensive medication - Continue labetalol 400 mg twice daily - Follow up in one week for blood pressure check - monitoring twice weekly (Mondays and ) for 20 minutes per session, starting at 32 weeks gestation - Prescription for labetalol to be sent - Prescription for Procardia already sent: 30 mg with breakfast and at night, and with lunch 1. Progress Reviewed gestational age, growth, and heart rate. Planned frequent visits (every 2 weeks until 36 weeks, then weekly). 2. Instructed patient to monitor movements and report decreases immediately. 3. Testing Counseled on routine third-trimester labs per guidelines. Discussed potential need for ultrasound or monitoring based on her risk factors. 4. Preeclampsia Precaution Educated on preeclampsia signs: severe headache, vision changes, right upper quadrant pain, sudden swelling. Advised urgent reporting of symptoms and discussed blood pressure monitoring if she is high risk. 5. Labor Precautions Reviewed labor signs: regular contractions, pelvic pressure, back pain, bleeding, or fluid leakage. Instructed her to seek immediate care for these symptoms. 6. Lifestyle and Delivery Preparation Reinforced vitamins, nutrition, and safe activity. Discussed plan, pain management, and . Advised her on labor preparation (e.g., hospital bag) and expectations. 7. Psychosocial Support Assessed her emotional well-being and offered resources for mental health or parenting support.
== END 2025-08-18 16:07 | disposition home or self-care (01) ==
LOC: HODSOBC 15:18
PROVIDERS: Supervising Provider Obstetrics & Gynecology; Visit Provider Obstetrics & Gynecology
DX: O09.893 Supervision of other high risk pregnancies, third trimester (principal); O10.013 Pre-existing essential hypertension complicating pregnancy, third trimester; Z3A.29 29 weeks gestation of pregnancy; Z79.82 Long term (current) use of aspirin; Z79.899 Other long term (current) drug therapy
CPT/HCPCS: 99213; G0463

== ENCOUNTER 2025-08-23 09:19 | Outpatient (AMB) | payer MEDICAID, SELFPAY ==
[2025-08-23 09:52] VITALS: BP 131/84; PULSE 92; RESP 19; TEMP 36.8; O2SAT 98; BMI 37.0
--- NOTE | 2025-08-23 09:52 | AMB.OBVISIT ---
Vital Signs 08/23/25 09:52 Height 1.68 m Height Method Measured Weight 104.496 kg Weight Measurement Method Standing Scale BMI 37.0 BP 131/84 H Blood Pressure Source Automatic Cuff Blood Pressure Location Right Upper Arm Position Sitting Respiration 19 Pulse 92 Pulse Source Monitor Temp 98.2 F Temp Source Temporal Artery Scan Pulse Oximetry (%) 98 Oxygen Delivery Method Room Air Allergies/Home Meds Allergies & Medications Allergies No Known Allergies Allergy (Verified 08/18/25 15:49) Intake Visit Data Collection New Patient or Established: Established Patient (seen at [facility] within 3 years) Reason for Visit:: OBC FOLLOW UP Do You Feel Safe at Home: Yes Authorities Contacted: N/A PCP or OBGYN visit in last 3 months: Yes Date of Last PCP or OBGYN visit: 08/18/25 Hx Now: Yes Are you currently on any form of Control: No Pain Present Currently: No Smoking Status Smoking Status: Never smoker Questionnaires PHQ-9 PHQ-2 Over the last 2 weeks, how often have you been bothered by any of the following problems? 1. Little interest or pleasure in doing things: not at all PHQ-9 8. Moving or speaking so slowly that other people could have noticed? - Or the opposite - being so fidgety or restless that you have been moving around a lot more than usual: not at all Source: Developed by Drs. Chilango Danielle, Fabi Rod, Austen Milian and colleagues, with an educational caryl from [employer]. 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 Denies sab complaints at this time. happy about . advised patient to continue taking labetolol 100 bid. I ordered BP kit and advised patient to check BP at home and work, note for no lifting over 25 pounds, no climbing. OB panel, HCG, HA1c, cmp, .continue PNV, rest,sab precaution, sono for viability, rtc 3 week, NIPT and carrier screen. rtc 3 week 04/28/25 <del>?</del> 13w 2d 102.682 kg 143/79 absent unknown 12 145 absent denies SOTO,blurred vision,epigatric pain, no SAB complaints, sono for viability, done. results pending TSH, 24hr urine, uric acid, CMP was done, sab precaution reviewed, NIPT and carrier screen, continue labetolol 100 bid and f/u with OB to review management 4 week 05/25/25 <del>?</del> 17w 1d 102.625 kg 152/92 absent 137 absent at 17w1d, JORY 10/2025. Chronic HTN on labetalol 100mg BID. Reports headaches. Hx IUGR (2200g weight). FHR 137, female fetus. Genetics and pre-eclampsia labs normal. Thyroid low but normal for . Continue labetalol, Tylenol up to 2000mg daily for SOTO, anatomy scan at [facility] on , FU 4 weeks after scan to review results. 08/18/25 <del>?</del> 29w 2d 104.78 kg 147/83 absent unknown 30 145 active - Patient continues to have elevated blood pressure - Recent readin/83 mmHg - Currently taking labetalol 400 mg twice daily - Dose was increased at last appointment - Patient reports feeling normal despite elevated blood pressure - States she doesn't feel nothing - No other symptoms or complaints reported - Add Procardia as a second antihypertensive medication - Continue labetalol 400 mg twice daily - Follow up in one week for blood pressure check - monitoring twice weekly (Mondays and ) for 20 minutes per session, starting at 32 weeks gestation - Prescription for labetalol to be sent - Prescription for Procardia already sent: 30 mg with breakfast and at night, and with lunch 08/23/25 <del>?</del> 30w 0d 104.496 kg 131/84 absent cephalic 32 130 active - Patient reports feeling really good and more comfortable compared to previous visits. - Blood pressure has improved: - Current readin/84 mmHg - Previous reading 4 days ago: 147/83 mmHg - Medication changes: - Labetalol increased to 400 mg - Procardia added to regimen - Patient is taking medications as prescribed: - One medication in the morning - One medication in the evening - Another medication in the middle of the day No contractions, LOF, VB and reports good FM. Denies SOTO, VC, and epigastric pain. Plan - Continue current medication regimen (Labetalol 400mg and Procardia) - Follow up in 2 weeks - Monitor for severe headache unrelieved by Tylenol, visual disturbances (tight band sensation or light flashes/floaters), and right-sided pain in liver/gallbladder area - Present to hospital if any of the above symptoms occur JORY Calculator Estimated Delivery Date Method Current WG Current Estimate 11/01/25 Ultrasound #1 30w 0d Other Estimates 10/28/25 LMP (Certain) 30w 4d Assessment & Plan Diagnosis / Problem List (1) Chronic benign essential hypertension, antepartum: Status: Acute (2) Gestational [-induced] hypertension without significant proteinuria, third trimester: Status: Acute Plan Problem List - Gestational hypertension - , third trimester Assessment at 30 weeks 0 days gestation presenting for visit and blood pressure check. Patient's blood pressure has improved to 131/84 from 147/83 four days ago, following an increase in labetalol to 400 mg and the addition of Procardia. Patient reports feeling really good and her facial edema has decreased compared to the previous visit. heart rate auscultated at 130 bpm, which is within normal limits. Plan - Continue current medication regimen (Labetalol 400mg and Procardia) - Follow up in 2 weeks - Monitor for severe headache unrelieved by Tylenol, visual disturbances (tight band sensation or light flashes/floaters), and right-sided pain in liver/gallbladder area - Present to hospital if any of the above symptoms occur 1. Progress Reviewed gestational age, growth, and heart rate. Planned frequent visits (every 2 weeks until 36 weeks, then weekly). 2. Instructed patient to monitor movements and report decreases immediately. 3. Testing Counseled on routine third-trimester labs per guidelines. Discussed potential need for ultrasound or monitoring based on risk factors. 4. Preeclampsia Precaution Educated on preeclampsia signs: severe headache, vision changes, right upper quadrant pain, sudden swelling. Advised urgent reporting of symptoms and discussed blood pressure monitoring if high risk. 5. Labor Precautions Reviewed labor signs: regular contractions, pelvic pressure, back pain, bleeding, or fluid leakage. Instructed to seek immediate care for these symptoms. 6. Lifestyle and Delivery Preparation Reinforced vitamins, nutrition, and safe activity. Discussed plan, pain management, and . Advised on labor preparation (e.g., hospital bag) and expectations. 7. Psychosocial Support Assessed emotional well-being and offered resources for mental health or parenting support.
== END 2025-08-23 10:34 | disposition home or self-care (01) ==
LOC: HODSOBC 09:19
PROVIDERS: Supervising Provider Obstetrics & Gynecology; Visit Provider Obstetrics & Gynecology
DX: O09.893 Supervision of other high risk pregnancies, third trimester (principal); O10.013 Pre-existing essential hypertension complicating pregnancy, third trimester; Z3A.30 30 weeks gestation of pregnancy; Z79.899 Other long term (current) drug therapy
CPT/HCPCS: 99214; G0463

== ENCOUNTER 2025-09-06 08:58 | Outpatient (AMB) | payer MEDICAID, SELFPAY ==
[2025-09-06 09:27] VITALS: BP 128/80; PULSE 76; RESP 16; TEMP 36.3; O2SAT 97; BMI 37.9
--- NOTE | 2025-09-06 09:27 | OBCLNT_ITS ---
Vital Signs 09/06/25 09:27 Height 1.68 m Height Method Stated Weight 107.104 kg Weight Measurement Method Standing Scale BMI 37.9 BP 128/80 Blood Pressure Source Automatic Cuff Blood Pressure Location Left Upper Arm Position Sitting Respiration 16 Pulse 76 Pulse Source Monitor Temp 97.4 F Temp Source Oral Pulse Oximetry (%) 97 Oxygen Delivery Method Room Air Allergies/Home Meds Allergies & Medications Allergies No Known Allergies Allergy (Verified 09/06/25 09:29) Medication Reconciliation vits no.124-ferrous fum 27 mg iron-folic acid 800 mcg tablet ( Vitamin) tab 10/30/23 [History Confirmed 09/06/25] blood pressure monitor #1 ea 03/30/25 [Rx Confirmed 09/06/25] aspirin 81 mg tablet 162 mg (2 x 81 mg) PO QDAY 90 days #180 tabs 07/06/25 [Rx Confirmed 09/06/25] labetalol 400 mg tablet 400 mg PO BID 30 days #60 tabs 08/18/25 [Rx Confirmed 09/06/25] nifedipine 30 mg tablet,extended release 30 mg PO QDAY 30 days #30 tabs 08/18/25 [Rx Confirmed 09/06/25] Intake Visit Data Collection New Patient or Established: Established Patient (seen at [facility] within 3 years) Reason for Visit:: CARE Seen by Clinical Staff ONLY (RN/MA): No Spar Cap Beveler Required: No Do You Feel Safe at Home: Yes Authorities Contacted: N/A PCP or OBGYN visit in last 3 months: Yes Hx Now: No Are you currently on any form of Control: No Pain Present Currently: No Pain Scale Used: Gaming-Dixon/Numerical Pain scale:: 0 Smoking Status Smoking Status: Never smoker Questionnaires Covid-19 Vaccine Questionnaire Has patient been vacinated for Covid-19 Have you been vacinated for Covid-19: No PHQ-9 PHQ-2 Over the last 2 weeks, how often have you been bothered by any of the following problems? 1. Little interest or pleasure in doing things: not at all 2. Feeling down, depressed, or hopeless: not at all Total score: 0 PHQ-9 3. Trouble falling or staying asleep, or sleeping too much: Not at all 4. Feeling tired or having little energy: Not at all 5. Poor appetite or overeating: Not at all 6. Feeling bad about yourself - or that you are a failure or have let yourself or your family down: Not at all 7. Trouble concentrating on things, such as reading the newspaper or watching television: Not at all 8. Moving or speaking so slowly that other people could have noticed? - Or the opposite - being so fidgety or restless that you have been moving around a lot more than usual: not at all 9. Thoughts that you would be better off or of hurting yourself in some way: Not at all Total score: 0 Source: Developed by Drs. Chilango Danielle, Fabi Rod, Austen Milian and colleagues, with an educational caryl from [employer]. 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 Denies sab complaints at this time. happy about . advised patient to continue taking labetolol 100 bid. I ordered BP kit and advised patient to check BP at home and work, note for no lifting over 25 pounds, no climbing. OB panel, HCG, HA1c, cmp, .continue PNV, rest,sab precaution, sono for viability, rtc 3 week, NIPT and carrier screen. rtc 3 week 04/28/25 -?-?-?-?-?-?-?-?-?-?-?-?- 13w 2d 102.682 kg 143/79 absent unknown 12 145 absent denies SOTO,blurred vision,epigatric pain, no SAB complaints, sono for viability, done. results pending TSH, 24hr urine, uric acid, CMP was done, sab precaution reviewed, NIPT and carrier screen, continue labetolol 100 bid and f/u with OB to review management 4 week 05/25/25 -?-?-?-?-?-?-?-?-?-?-?-?- 17w 1d 102.625 kg 152/92 absent 137 abse nt at 17w1d, JORY 10/2025. Chronic HTN on labetalol 100mg BID. Reports headaches. Hx IUGR (2200g weight). FHR 137, female fetus. Genetics and pre-eclampsia labs normal. Thyroid low but normal for . Co ntinue labetalol, Tylenol up to 2000mg daily for SOTO, anatomy scan at [facility] on , FU 4 weeks after scan to review results. 08/18/25 -?-?-?-?-?-?-?-?-?-?-?-?- 29w 2d 104.78 kg 147/83 absent unknown 30 145 active - Patient continues to have elevated blood pressure - Recent readin/83 mmHg - Currently taking labetalol 400 mg twic e daily - Dose was increased at last appointme nt - Patient reports feeling normal despite elevated blood pressure - States she doesn't feel nothing - No other symptoms or complaints reported - Add Procardia as a second antihypertensive medication - Continue labetalol 400 mg twice daily - Follow up in one week for blood pressu re check - monitoring twice weekly (Mondays and ) for 20 minutes per session, starting at 32 weeks gestation - Prescription for labetalol to be sent - Prescription for Procardia already sen t: 30 mg with breakfast and at night, and with lunch 08/23/25 -?-?-?-?-?-?-?-?-?-?-?-?- 30w 0d 104.496 kg 131/84 absent cephalic 32 13 0 active - Patient reports feeling really good and more comfortable compared to previous visits. - Blood pressure has improved: - Current readin/84 mmHg - Previous reading 4 days ago: 147/83 mmHg - Medication changes: - Labetalol increased to 400 mg - Procardia added to regimen - Patient is taking medications as presc ribed: - One medication in the morning - One medication in the evening - Another medication in the middle of the day No contractions, LOF, VB and reports goo d FM. Denies SOTO, VC, and epigastric pain. Plan - Continue current medication regimen (L abetalol 400mg and Procardia) - Follow up in 2 weeks - Monitor for severe headache unrelieved by Tylenol, visual disturbances (tight band sensation or light flashes/floaters), and right-sided pain in liver/gallbladder area - Present to hospital if any of the abov e symptoms occur 09/06/25 -?-?-?-?-?-?-?-?-?-?-?-?- 32w 0d 107.104 kg 128/80 absent cephalic 34 13 9 active - History of intrauterine growth restriction (IUGR) in a previous . - Current estimated weight (EFW) is in the 39th percentile. - Currently on medication regimen for bl ood pressure control: - Labetalol 400 mg twice daily - Procardia 30 mg once daily - Blood pressure at this visit: 128/80 m mHg - heart rate: 139-140 bpm, noted a s normal - Patient reports adherence to twice-[place] anesthesia appointments at the hospital - No new symptoms or concerns reported - Continue current medications: labetalol 400mg BID and Procardia 30mg daily - Administer Tdap vaccine today - Continue with scheduled ultrasound angelica ointment in [place] for measurements and Doppler studies - Transition to weekly appointments from now onwards - Continue twice-weekly anesthesia appoi ntments at the hospital JORY Calculator Estimated Delivery Date Method Current WG Current Estimate 11/01/25 Ultrasound #1 32w 0d Other Estimates 10/28/25 LMP (Certain) 32w 4d Office Procedures OBC Clinic LOC & Office Proc's Nursing/Assessment Patient Status: Established Patient OB Clinic Nursing Assessment: Medication Reconciliation, Update PMH in EMR and Vital Signs OB Clinic Coordination of Care: Complex Care and Chronic Disease 1-5, Consent,records obtained, informed consent, Education Simp Pt/Fam, Lab and Imaging orders, Results/Orders obtained and Staff clarify orders Special Needs: Heart tones Established Patient Charge Established Patient Point Assignment: 135 Established Patient Point Charge: EP Level 4 (120-155) Immunizations diphth,pertus(acell),tetanus 2.5 Lf unit-8 mcg-5 Lf/0.5mL IM syringe Performing Provider: Juwan Harvey MD Performing Location: [facility] Administered by: Catrachita Mayo MA on 09/06/25 10:57 Dose Route Admin Location Dispensed Lot Number Expiration Date Pack age ND ND Firmware Architect 0.5 mL IM Left Deltoid 0.5 mL [id number] 10/28/27 56965-209-96 [id number] Oxynade VIS Given Date VIS Provided VIS Publication Date 09/06/25 Single Vaccine 24 Eligibility Eligibility Date Funding Source Public Non-[facility] Assessment & Plan Diagnosis / Problem List (1) Chronic benign essential hypertension, antepartum: Status: Acute (2) 32 weeks gestation of : Status: Acute Plan Problem List - , third trimester - Chronic hypertension complicating - History of intrauterine growth restriction Assessment at 32 weeks 2 days gestation with chronic hypertension, well-controlled on labetalol 400mg BID and Procardia 30mg daily. Current blood pressure 128/80. History of intrauterine growth restriction (IUGR) in previous . Current estimated weight (EFW) is in the 39th percentile. heart rate 139-140 bpm, within normal limits. Patient is due for Tdap vaccination. Regular care and ultrasound monitoring are ongoing due to history of IUGR and hypertension. Plan - Continue current medications: labetalol 400mg BID and Procardia 30mg daily - Administer Tdap vaccine today - Continue with scheduled ultrasound appointment in [place] for measurements and Doppler studies - Transition to weekly appointments from now onwards - Continue twice-weekly anesthesia appointments at the hospital 1. Progress Reviewed gestational age [32 weeks and 2 days], growth [EFW is in the 39th percentile], and heart rate [139, 140]. Planned frequent visits (every 2 weeks until 36 weeks, then weekly). 2. Instructed patient to monitor movements and report decreases immediately. 3. Testing Counseled on routine third-trimester labs per guidelines. Discussed potential need for ultrasound or monitoring based on risk factors [history of IUGR in a previous ]. 4. Preeclampsia Precaution Educated on preeclampsia signs: severe headache, vision changes, right upper quadrant pain, sudden swelling. Advised urgent reporting of symptoms and discussed blood pressure monitoring if high risk [current blood pressure is 128 over 80]. 5. Labor Precautions Reviewed labor signs: regular contractions, pelvic pressure, back pain, bleeding, or fluid leakage. Instructed to seek immediate care for these symptoms. 6. Lifestyle and Delivery Preparation Reinforced vitamins, nutrition, and safe activity. Discussed plan, pain management, and . Advised on labor preparation (e.g., hospital bag) and expectations. 7. Psychosocial Support Assessed emotional well-being and offered resources for mental health or parenting support.
== END 2025-09-06 10:09 | disposition home or self-care (01) ==
LOC: HODSOBC 08:58
PROVIDERS: Supervising Provider Obstetrics & Gynecology; Visit Provider Obstetrics & Gynecology
DX: O09.893 Supervision of other high risk pregnancies, third trimester (principal); O10.013 Pre-existing essential hypertension complicating pregnancy, third trimester; O09.293 Supervision of pregnancy with other poor reproductive or obstetric history, third trimester; Z3A.32 32 weeks gestation of pregnancy; Z23 Encounter for immunization; Z79.899 Other long term (current) drug therapy
CPT/HCPCS: 90471; 90715; 99214; G0463

== ENCOUNTER 2025-09-21 08:58 | Outpatient (AMB) | payer MEDICAID, SELFPAY ==
[2025-09-21 09:13] VITALS: BP 131/77; PULSE 100; RESP 18; TEMP 36.2; O2SAT 98; BMI 37.9
--- NOTE | 2025-09-21 09:13 | OBCLNT_ITS ---
Vital Signs 09/21/25 09:13 Height 1.68 m Height Method Stated Weight 107.048 kg Weight Measurement Method Standing Scale BMI 37.9 BP 131/77 H Blood Pressure Source Automatic Cuff Blood Pressure Location Left Upper Arm Position Sitting Respiration 18 Pulse 100 Pulse Source Monitor Temp 97.2 F Temp Source Oral Pulse Oximetry (%) 98 Oxygen Delivery Method Room Air Allergies/Home Meds Allergies & Medications Allergies No Known Allergies Allergy (Verified 10/25/25 10:09) Medication Reconciliation vits no.124-ferrous fum 27 mg iron-folic acid 800 mcg tablet ( Vitamin) tab 10/30/23 [History Confirmed 10/25/25] blood pressure monitor #1 ea 03/30/25 [Rx Confirmed 10/25/25] nifedipine 30 mg tablet,extended release 30 mg PO QDAY 30 days #30 tabs 08/18/25 [Rx Confirmed 10/25/25] Intake Visit Data Collection New Patient or Established: Established Patient (seen at [facility] within 3 years) Reason for Visit:: OBC Seen by Clinical Staff ONLY (RN/MA): No 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 Do You Feel Safe at Home: Yes Authorities Contacted: N/A PCP or OBGYN visit in last 3 months: Yes Date of Last PCP or OBGYN visit: 09/19/25 Hx Now: Yes Are you currently on any form of Control: No Pain Present Currently: No Pain Scale Used: Gaming-Dixon/Numerical Pain scale:: 0 Smoking Status Smoking Status: Never smoker Would you like additional Smoking Cessation Counseling?: No Immunizations Flu Vaccine in the Last 12 Months: No Flu Vaccine Exclusion Criteria: No Exclusion Criteria Questionnaires Covid-19 Vaccine Questionnaire Has patient been vacinated for Covid-19 Have you been vacinated for Covid-19: Yes PHQ-9 PHQ-2 Over the last 2 weeks, how often have you been bothered by any of the following problems? 1. Little interest or pleasure in doing things: not at all 2. Feeling down, depressed, or hopeless: not at all Total score: 0 PHQ-9 3. Trouble falling or staying asleep, or sleeping too much: Not at all 4. Feeling tired or having little energy: Not at all 5. Poor appetite or overeating: Not at all 6. Feeling bad about yourself - or that you are a failure or have let yourself or your family down: Not at all 7. Trouble concentrating on things, such as reading the newspaper or watching television: Not at all 8. Moving or speaking so slowly that other people could have noticed? - Or the opposite - being so fidgety or restless that you have been moving around a lot more than usual: not at all 9. Thoughts that you would be better off or of hurting yourself in some way: Not at all Total score: 0 If you checked off any problems, how difficult have these problems made it for you to do your work, take care of things at home, or get along with other people?: not difficult at all Source: Developed by Drs. Chilango Danielle, Fabi Rod, Austen Milian and colleagues, with an educational caryl from [employer]. 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 Denies sab complaints at this time. happy about . advised patient to continue taking labetolol 100 bid. I ordered BP kit and advised patient to check BP at home and work, note for no lifting over 25 pounds, no climbing. OB panel, HCG, HA1c, cmp, .continue PNV, rest,sab precaution, sono for viability, rtc 3 week, NIPT and carrier screen. rtc 3 week 04/28/25 -?-?-?-?-?-?-?-?-?-?-?-?- 13w 2d 102.682 kg 143/79 absent unknown 12 145 absent denies SOTO,blurred vision,epigatric pain, no SAB complaints, sono for viability, done. results pending TSH, 24hr urine, uric acid, CMP was done, sab precaution reviewed, NIPT and carrier screen, continue labetolol 100 bid and f/u with OB to review management 4 week 05/25/25 -?-?-?-?-?-?-?-?-?-?-?-?- 17w 1d 102.625 kg 152/92 absent 137 abse nt at 17w1d, JORY 10/2025. Chronic HTN on labetalol 100mg BID. Reports headaches. Hx IUGR (2200g weight). FHR 137, female fetus. Genetics and pre-eclampsia labs normal. Thyroid low but normal for . Co ntinue labetalol, Tylenol up to 2000mg daily for SOTO, anatomy scan at [facility] on , FU 4 weeks after scan to review results. 07/06/25 -?-?-?-?-?-?-?-?-?-?-?-?- 23w 1d 102.512 kg 143/79 absent unknown 24 145 active - Steph Flower is a 30-year-old female, 2 para 1, at 23 weeks and 1 day gestation with a history of chronic hypertension presenting for routine care. - She reports the baby is active and mov ing well. - She is currently taking labetalol 100 mg twice daily for blood pressure management and requests a refill for aspirin. - She reports significant work-related s tress at her job at [employer] in [place], describing her workplace as very high demanding. 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 - She maintains activity at home with mo rning and afternoon walks and stays active throughout the day. - She expresses desire to remain active but finds work environment overwhelming. - Increase labet alol from 100 mg to 200 mg (2 tablets in morning, 2 tablets at night) - Refill aspirin prescription - Provide work restriction letter for hi gh-risk - Order glucose tolerance test - Provide lab phone number for patient t o schedule glucose test 08/12/25 -?-?-?-?-?--?-?-?-?-?-?-?- 28w 3d 104.099 kg 147/81 absent unknown 28 141 active - Blood pressure today is 143/79 mmHg, improved from 154/14 mmHg at the last visit. - Patient reports adherence to prescribe d labetalol, which was increased to 200 mg at the last visit. - She takes her medication at 7 AM joycelyn ly. - Patient states she feels fine and has been watching her diet. - Denies any diet-related effects on blo od pressure when informed by the provider. - Continues to take prescribed aspirin. Plan - Increase labetalol to 400 mg twice joycelyn ly - Continue aspirin - Follow up in 1 week for blood pressure check - If blood pressure not controlled at ne xt visit, consider adding second medication (Procardia) - Ultrasound results to be scanned into patient's chart 08/18/25 -?-?-?-?-?-?-?-?-?-?-?-?- 29w 2d 104.78 kg 147/83 absent unknown 30 145 active - Patient continues to have elevated blood pressure - Recent readin/83 mmHg - Currently taking labetalol 400 mg twic e daily - Dose was increased at last appointme nt - Patient reports feeling normal despite elevated blood pressure - States she doesn't feel nothing - No other symptoms or complaints reported - Add Procardia as a second antihypertensive medication - Continue labetalol 400 mg twice daily - Follow up in one week for blood pressu re check - monitoring twice weekly (Mondays and ) for 20 minutes per session, starting at 32 weeks gestation - Prescription for labetalol to be sent - Prescription for Procardia already sen t: 30 mg with breakfast and at night, and with lunch 08/23/25 -?-?-?-?-?-?-?-?-?-?-?-?- 30w 0d 104.496 kg 131/84 absent cephalic 32 13 0 active - Patient reports feeling really good and more comfortable compared to previous visits. - Blood pressure has improved: - Current readin/84 mmHg - Previous reading 4 days ago: 147/83 mmHg - Medication changes: - Labetalol increased to 400 mg - Procardia added to regimen - Patient is taking medications as presc ribed: - One medication in the morning - One medication in the evening - Another medication in the middle of the day No contractions, LOF, VB and reports goo d FM. Denies SOTO, VC, and epigastric pain. Plan - Continue current medication regimen (L abetalol 400mg and Procardia) - Follow up in 2 weeks - Monitor for severe headache unrelieved by Tylenol, visual disturbances (tight band sensation or light flashes/floaters), and right-sided pain in liver/gallbladder area - Present to hospital if any of the abov e symptoms occur 09/06/25 -?-?-?-?-?-?-?-?-?-?-?-?- 32w 0d 107.104 kg 128/80 absent cephalic 34 13 9 active - History of intrauterine growth restriction (IUGR) in a previous . - Current estimated weight (EFW) is in the 39th percentile. - Currently on medication regimen for bl ood pressure control: - Labetalol 400 mg twice daily - Procardia 30 mg once daily - Blood pressure at this visit: 128/80 m mHg - heart rate: 139-140 bpm, noted a s normal - Patient reports adherence to twice-ele river anesthesia appointments at the hospital - No new symptoms or concerns reported - Continue current medications: labetalol 400mg BID and Procardia 30mg daily - Administer Tdap vaccine today - Continue with scheduled ultrasound angelica ointment in [place] for measurements and Doppler studies - Transition to weekly appointments from now onwards - Continue twice-weekly anesthesia appoi ntments at the hospital 09/21/25 -?-?-?-?-?-?-?-?-?-?-?-?- 34w 1d 107.048 kg 131/77 absent cephalic 35 14 5 active - She has a history of intrauterine growth restriction (IUGR) in a previous . - Currently managed on chronic hypertens ion with Procardia 30 mg and labetalol 400 mg. - Reports taking both medications as pre scribed. - Blood pressure today measured 131/77 m mHg. - Reports baby is moving well and denies any concerning symptoms. - Had maternal- medicine (MFM) ultr asound yesterday (September 20, 2025). - Attends anesthesia appointments at the hospital on Mondays and as scheduled. - Scheduled travon ction of labor on October 13 at 37+1 weeks gestation for chronic hypertension - Continue current antihypertensive jessy men: Procardia 30mg and labetalol 400mg - Monitor blood pressure at home; double labetalol dose if needed - Continue testing on Mondays and - Follow-up appointment in 2 weeks, then weekly visits thereafter - Refills available for medications as n eeded (2-3 refills provided) 10/06/25 -?-?-?-?-?-?-?-?-?-?-?-?- 36w 2d 106.141 kg 127/80 absent cephalic 37 14 0 active - She has chronic hypertension managed on two medications: labetalol and Procardia. - Patient reports that her blood pressur e is holding up well on current medication regimen. - She confirms that the baby is active. - Patient is receiving twice-weekly NST treatments which are continuing. - She denies any acute concerns or new symptoms at this visit. - Induction of labor scheduled for , October 13 at 37+ weeks gestation due to chronic hypertension on dual antihypertensive therapy - Patient to call hospital on day of ind uction for room assignment and arrival time instructions - Continue current antihypertensive medi cations (labetalol and Procardia) - Continue twice-weekly NST visits - Group B Strep culture obtained today, results pending - No further appointments sched uled prior to delivery JORY Calculator Estimated Delivery Date Method Current WG Current Estimate 11/01/25 Ultrasound #1 43w 2d Other Estimates 10/28/25 LMP (Certain) 43w 6d Notes Visit Date: 09/21/25 Last Updated by: Juwan Harvey MD Laboratory, Imaging, and Diagnostic Test Results - Date: 09/20/2025 - [facility] ultrasound: weight 2337 grams (30th percentile), JESSICA within normal limits, anatomy normal, placenta posterior with no previa, cephalic presentation, BPP 07/08 Visit Date: 08/12/25 Last Updated by: Juwan Harvey MD Laboratory, Imaging, and Diagnostic Test Results - Ultrasound (07/27/2025): - Gestational age: 28 weeks 3 days - measurements: Appropriate - Estimated weight: 39th percentile - Amniotic fluid: Normal - anatomy: Normal - Placenta: Posterior - position: Breech Office Procedures OBC Clinic LOC & Office Proc's Nursing/Assessment Patient Status: Established Patient OB Clinic Nursing Assessment: Medication Reconciliation, Update PMH in EMR and Vital Signs OB Clinic Coordination of Care: Consent,records obtained, informed consent, Ed ucation Simp Pt/Fam, Lab and Imaging orders, Results/Orders obtained and Staff clarify orders Special Needs: Heart tones Established Patient Charge Established Patient Point Assignment: 110 Established Patient Point Charge: EP Level 3 (80-115) Assessment & Plan Diagnosis / Problem List (1) Obesity affecting in third trimester: Status: Acute Qualifiers: Obesity type affecting : unspecified obesity Qualified Code(s): O99.213 - Obesity complicating , third trimester Plan Problem List - Chronic hypertension - Intrauterine growth restriction Assessment 30-year-old at 34 weeks 1 day gestation with chronic hypertension currently managed on Procardia 30 mg and labetalol 400 mg with blood pressure of 131/77 mmHg. Patient has history of IUGR in previous . Recent [facility] ultrasound on 09/20/2025 shows weight of 2337 grams at 30th percentile with normal JESSICA, normal anatomy, posterior placenta without previa, cephalic presentation, and BPP 8/8. [facility] has recommended delivery between 37-39 weeks. GBS status is pending. Plan - Scheduled induction of labor on October 13 at 37+1 weeks gestation for chronic hypertension - Continue current antihypertensive regimen: Procardia 30mg and labetalol 400mg - Monitor blood pressure at home; double labetalol dose if needed - Continue testing on Mondays and - Follow-up appointment in 2 weeks, then weekly visits thereafter - Refills available for medications as needed (2-3 refills provided) 1. Progress Reviewed gestational age, growth, and heart rate. Planned frequent visits (every 2 weeks until 36 weeks, then weekly). 2. Instructed patient to monitor movements and report decreases immediately. 3. Testing Counseled on routine third-trimester labs per guidelines. Discussed potential need for ultrasound or monitoring based on risk factors. 4. Preeclampsia Precaution Educated on preeclampsia signs: severe headache, vision changes, right upper quadrant pain, sudden swelling. Advised urgent reporting of symptoms and discussed blood pressure monitoring if high risk. 5. Labor Precautions Reviewed labor signs: regular contractions, pelvic pressure, back pain, bleeding, or fluid leakage. Instructed to seek immediate care for these symptoms. 6. Lifestyle and Delivery Preparation Reinforced vitamins, nutrition, and safe activity. Discussed plan, pain management, and . Advised on labor preparation (e.g., hospital bag) and expectations. 7. Psychosocial Support Assessed emotional well-being and offered resources for mental health or p arenting support.
== END 2025-09-21 09:34 | disposition home or self-care (01) ==
LOC: HODSOBC 08:58
PROVIDERS: Supervising Provider Obstetrics & Gynecology; Visit Provider Obstetrics & Gynecology
DX: O09.893 Supervision of other high risk pregnancies, third trimester (principal); O99.213 Obesity complicating pregnancy, third trimester; O10.913 Unspecified pre-existing hypertension complicating pregnancy, third trimester; Z3A.34 34 weeks gestation of pregnancy; Z87.59 Personal history of other complications of pregnancy, childbirth and the puerperium; Z79.899 Other long term (current) drug therapy
CPT/HCPCS: 99213; G0463

== ENCOUNTER 2025-10-10 09:35 | Outpatient (RCR) | payer MEDICAID, SELFPAY ==
--- NOTE | 2025-08-29 09:44 | XR_ITS ---
Examination: Biophysical profile, ultrasound Date and time of exam: August 29, 2025, 1005 hours INDICATIONS: Gestational hypertension Technique: Multiple transabdominal sonographic images of the pelvis abdomen obtained. Attention is directed to the breathing movement, gross body movement, amniotic fluid volume and tone. Findings: Amniotic fluid index 11.1 cm Total biophysical profile is 8 of 8. breathing movement is 2. Gross body movement is 2. tone is 2. Qualitative amniotic fluid volume is 2 Impression: Biophysical profile is 8 of 8.
[2025-08-29 10:38] VITALS: BP 116/63; PULSE 89; RESP 16; TEMP 36.8
--- NOTE | 2025-09-01 09:25 | XR_ITS ---
Examination: Biophysical profile, ultrasound Date and time of exam: September 01, 2025, 0949 hours INDICATIONS: -induced hypertension diagnoses Technique: Multiple transabdominal sonographic images of the pelvis abdomen obtained. Attention is directed to the breathing movement, gross body movement, amniotic fluid volume and tone. Findings: Amniotic fluid index 17.6 cm Total biophysical profile is 8 of 8. breathing movement is 2. Gross body movement is 2. tone is 2. Qualitative amniotic fluid volume is 2 Impression: Biophysical profile is 8 of 8.
[2025-09-01 10:27] VITALS: BP 115/64; PULSE 98; RESP 16; TEMP 36.7
--- NOTE | 2025-09-05 09:37 | XR_ITS ---
Examination: Biophysical profile, ultrasound Date and time of exam: September 05, 2025, 0942 hours INDICATIONS: Diagnosis -induced hypertension Technique: Multiple transabdominal sonographic images of the pelvis abdomen obtained. Attention is directed to the breathing movement, gross body movement, amniotic fluid volume and tone. Findings: Amniotic fluid index 15.3 cm Total biophysical profile is 8 of 8. breathing movement is 2. Gross body movement is 2. tone is 2. Qualitative amniotic fluid volume is 2 Impression: Biophysical profile is 8 of 8.
[2025-09-05 11:01] VITALS: BP 130/61; PULSE 74; RESP 16; TEMP 36.4
--- NOTE | 2025-09-08 09:29 | XR_ITS ---
Examination: Biophysical profile, ultrasound Date and time of exam: September 08, 2025, 0930 hours INDICATIONS: Diagnosis gestational hypertension Technique: Multiple transabdominal sonographic images of the pelvis abdomen obtained. Attention is directed to the breathing movement, gross body movement, amniotic fluid volume and tone. Findings: Amniotic fluid index 15.7 cm Total biophysical profile is 8 of 8. breathing movement is 2. Gross body movement is 2. tone is 2. Qualitative amniotic fluid volume is 2 Impression: Biophysical profile is 8 of 8.
[2025-09-08 10:45] VITALS: BP 130/78; PULSE 97; RESP 18
--- NOTE | 2025-09-12 10:04 | XR_ITS ---
Examination: Biophysical profile, ultrasound Date and time of exam: September 12, 2025, 10:30 a.m. INDICATIONS: -induced hypertension diagnosis Technique: Multiple transabdominal sonographic images of the pelvis abdomen obtained. Attention is directed to the breathing movement, gross body movement, amniotic fluid volume and tone. Findings: Amniotic fluid index 11.2 cm Total biophysical profile is 8 of 8. breathing movement is 2. Gross body movement is 2. tone is 2. Qualitative amniotic fluid volume is 2 Impression: Biophysical profile is 8 of 8.
[2025-09-12 11:41] VITALS: BP 134/78; PULSE 66; RESP 18
--- NOTE | 2025-09-15 09:40 | XR_ITS ---
Examination: Biophysical profile, ultrasound Date and time of exam: September 15, 2025, 0938 hours INDICATIONS: -induced hypertension Technique: Multiple transabdominal sonographic images of the pelvis abdomen obtained. Attention is directed to the breathing movement, gross body movement, amniotic fluid volume and tone. Findings: Amniotic fluid index 13.4 cm Total biophysical profile is 8 of 8. breathing movement is 2. Gross body movement is 2. tone is 2. Qualitative amniotic fluid volume is 2 Impression: Biophysical profile is 8 of 8.
[2025-09-15 10:28] VITALS: BP 138/73; PULSE 73; RESP 16; TEMP 36.9
--- NOTE | 2025-09-19 09:51 | XR_ITS ---
Examination: Biophysical profile, ultrasound Date and time of exam: September 19, 2025, 10 0 9:00 a.m. INDICATIONS: Diagnosis high risk Technique: Multiple transabdominal sonographic images of the pelvis abdomen obtained. Attention is directed to the breathing movement, gross body movement, amniotic fluid volume and tone. Findings: Amniotic fluid index 12.3 cm Total biophysical profile is 8 of 8. breathing movement is 2. Gross body movement is 2. tone is 2. Qualitative amniotic fluid volume is 2 Impression: Biophysical profile is 8 of 8.
[2025-09-19 10:50] VITALS: BP 125/63; PULSE 73; RESP 167
--- NOTE | 2025-09-22 09:42 | XR_ITS ---
Examination: Biophysical profile, ultrasound Date and time of exam: September 22, 2025, 1014 hours INDICATIONS: Diagnosis high risk Technique: Multiple transabdominal sonographic images of the pelvis abdomen obtained. Attention is directed to the breathing movement, gross body movement, amniotic fluid volume and tone. Findings: Amniotic fluid index 8.7 cm Total biophysical profile is 8 of 8. breathing movement is 2. Gross body movement is 2. tone is 2. Qualitative amniotic fluid volume is 2 Impression: Biophysical profile is 8 of 8.
[2025-09-22 11:16] VITALS: BP 130/74; PULSE 72; RESP 16; TEMP 36.6
--- NOTE | 2025-09-26 10:05 | XR_ITS ---
Examination: Biophysical profile, ultrasound Date and time of exam: September 26, 2025, 1042 hours INDICATIONS: Diagnosis high risk Technique: Multiple transabdominal sonographic images of the pelvis abdomen obtained. Attention is directed to the breathing movement, gross body movement, amniotic fluid volume and tone. Findings: Amniotic fluid index 9.4 cm Total biophysical profile is 8 of 8. breathing movement is 2. Gross body movement is 2. tone is 2. Qualitative amniotic fluid volume is 2 Impression: Biophysical profile is 8 of 8.
[2025-09-26 10:57] VITALS: BP 132/74; PULSE 73; RESP 16; TEMP 36.8
--- NOTE | 2025-09-29 09:40 | XR_ITS ---
Examination: Biophysical profile, ultrasound Date and time of exam: September 29, 2025, 1008 hours INDICATIONS: Diagnosis high risk Technique: Multiple transabdominal sonographic images of the pelvis abdomen obtained. Attention is directed to the breathing movement, gross body movement, amniotic fluid volume and tone. Findings: Amniotic fluid index 9.8 cm Total biophysical profile is 8 of 8. breathing movement is 2. Gross body movement is 2. tone is 2. Qualitative amniotic fluid volume is 2 Impression: Biophysical profile is 8 of 8.
[2025-09-29 10:57] VITALS: BP 122/68; PULSE 80; RESP 16
--- NOTE | 2025-10-03 09:44 | XR_ITS ---
Examination: Biophysical profile, ultrasound Date and time of exam: 10/03/2025, 9:44 a.m. INDICATIONS: High risk Technique: Multiple transabdominal sonographic images of the pelvis abdomen obtained. Attention is directed to the breathing movement, gross body movement, amniotic fluid volume and tone. Findings: Single live IUP identified. Total biophysical profile is 8 of 8. breathing movement is 2. Gross body movement is 2. tone is 2. Qualitative amniotic fluid volume is 2 JESSICA = 11.6 cm. FHR = 137 bpm. Impression: Biophysical profile is 8 of 8.
[2025-10-03 10:06] VITALS: BP 124/62; PULSE 86; RESP 16; TEMP 36.8
--- NOTE | 2025-10-06 09:46 | XR_ITS ---
Examination: Biophysical profile, ultrasound Date and time of exam: 10/06/2025 at 10:15 a.m. INDICATION: Biweekly NST and BPP due to high risk . COMPARISON: US BPP 10/03/2025 Technique: Multiple transabdominal sonographic images of the pelvis abdomen obtained. Attention is directed to the breathing movement, gross body movement, amniotic fluid volume and tone. Findings: Single live IUP in cephalic position. Total biophysical profile is 8 of 8. breathing movement is 2. Gross body movement is 2. tone is 2. Qualitative amniotic fluid volume is 2 JESSICA: 7.5 cm. FHR: 147 bpm. Impression: Biophysical profile is 8 of 8 as before.
[2025-10-06 10:53] VITALS: BP 126/64; PULSE 79; RESP 16; TEMP 36.6
--- NOTE | 2025-10-10 09:57 | XR_ITS ---
Examination: Biophysical profile, ultrasound Date and time of exam: October 10, 2025, 1028 hours INDICATIONS: Diagnosis high risk Technique: Multiple transabdominal sonographic images of the pelvis abdomen obtained. Attention is directed to the breathing movement, gross body movement, amniotic fluid volume and tone. Findings: Amniotic fluid index is 13.1 cm Total biophysical profile is 8 of 8. breathing movement is 2. Gross body movement is 2. tone is 2. Qualitative amniotic fluid volume is 2 Impression: Biophysical profile is 8 of 8.
[2025-10-10 10:44] VITALS: BP 130/77; PULSE 64; RESP 16; TEMP 36.3
== END 2025-10-10 23:59 | disposition home or self-care (01) ==
LOC: S4S1 09:35
PROVIDERS: Referring Provider Obstetrics & Gynecology; Visit Provider Obstetrics & Gynecology
DX: O10.019 Pre-existing essential hypertension complicating pregnancy, unspecified trimester (principal); O09.93 Supervision of high risk pregnancy, unspecified, third trimester; Z3A.36 36 weeks gestation of pregnancy
CPT/HCPCS: 59025; 76819

== ENCOUNTER 2025-10-13 09:25 | Inpatient (IN) | payer BC, MEDICAID, SELFPAY ==
[2025-10-13] VITALS (58 sets, daily range): BP systolic 121–148; BP diastolic 65–89; PULSE 60–129; RESP 17–19; TEMP 36.7–37.1; O2SAT 86–100; BMI 38.6
[2025-10-13] MEDS: RINGERS LACTATED 1000 ML 1,000 ML 100 ML IV ×4 (10:00→18:15)
[2025-10-13 10:13] LABS: Basophils # (Auto) 0.0 Thou/mm3 (0.0-0.2); Basophils % (Auto) 0 % (0-2.5); Eosinophils # (Auto) 0.1 Thou/mm3 (0.0-0.5); Eosinophils % (Auto) 2 % (0-10); Hematocrit 35.9 % (36.0-46.0); Hemoglobin 12.2 g/dL (12.0-16.0); Immature Granulocytes Auto 0.10 Thou/mm3 (0.00-0.00); Lymphocytes # (Auto) 1.6 Thou/mm3 (1.0-4.8); Lymphocytes % (Auto) 22 % (10-50); Mean Corpuscular HGB Conc 34.0 g/dl (31.0-37.0); Mean Corpuscular Hemoglobin 30.2 pg (25.0-35.0); Mean Corpuscular Volume 89 fL (80-100); Monocytes # (Auto) 0.5 Thou/mm3 (0.0-0.8); Monocytes % (Auto) 6 % (0-12); Neutrophils # (Auto) 5.0 Thou/mm3 (1.8-7.7); Neutrophils % (Auto) 69 % (37-80); Nucleated Red Blood Cell # 0.00 Thou/mm3 (0.00-0.00); Nucleated Red Blood Cell % 0 /100 WBC (0); Platelet Count 195 Thou/mm3 (140-440); RDW Standard Deviation 45.4 fL (36.4-46.3); Red Blood Count 4.04 Miln/mm3 (4.00-5.20); White Blood Count 7.3 Thou/mm3 (3.6-11.0)
[2025-10-13 11:28] LABS: Syphilis Nonreactive (Nonreactive)
--- NOTE | 2025-10-13 11:32 | ESHP_ITS ---
Documentation for date of: 10/13/25 OB Labor/Induct. HPI History of Present Illness Chief complaint: scheduled induction of labor : 3 Para: 2 Term pregnancies: 2 pregnancies: 0 Living children: 2 History of Abortions: Spontaneous and Elective: 0 History of Vaginal deliveries: 2 History of sections: No History of : No Date of last menstrual period: 01/21/25 JORY: 11/01/25 Gestational Age (weeks): 37 Gestational Age (days): 6 Gestational age based on last menstrual period: 37 Indication for induction: medical complication (CHTN on 2 medications) History of present illness: Patient presents for scheduled induction of labor. Indication: CHTN treated with both labetalol and nifedipine. No regular/painful ctx. No LOF. No vaginal bleeding. Normal movement. History of Present Dating criteria: LMP confirmed by 1st trimester US Adequate Care: Yes Ultrasounds: other ([facility] u/s 09/20: JESSICA 9.04, EFW 2337 grams (30th percentile)) Narrative: Hx of 2 term vaginal deliveries, 1st was IUGR, both pregnancies induced for HTN G3: Current BMI 38.6 CHTN treated with nifedipine 30mg PO XL QD and labetalol 400mg PO BID, ASA 162mg PO QD Labs Maternal Blood Type: O Pos Labs: Positive: Rubella Titre, Negative: RPR, Hepatitis B, HIV, Chlamydia, Gonorrhea and Group Beta Strep and Unknown: Herpes Type 1, Herpes Type 2 and Covid-19 Past Medical History Family History OTHER FAMILY HX: non-contributory Surgical History SURGICAL: Negative Section OTHER SURGICAL HX: cholecystectomy 2019 Social History SOCIAL: , 2 children at home ages 9 and 2. No tobacco/ETOH/illicit drug use. Past Medical History Comments PMH COMMENT: Obesity CHTN Gallbladder disease tx'd with cholecystectomy Meds Home Medications and Allergies Home Medications ?Medication ?Instructions ?Recorded ?Confirmed ?Type vits no.124-ferrous fum tab 10/30/23 10/06/25 History 27 mg iron-folic acid 800 mcg tablet ( Vitamin) Allergies Allergy/AdvReac Type Severity Reaction Status Date / Time No Known Allergies Allergy Verified 10/13/25 11:07 OB Exam Physical Exam Vital signs: Temp Pulse Resp BP O2 Del Method 98.0 F 65 19 121/68 Room Air 10/13/25 09:45 11/13/25 11:29 10/13/25 09:45 10/13/25 11:29 10/13/25 09:45 Narrative: General: well developed, well nourished, no acute distress, conversant Cardiac: normal heart rate Lungs: breathing without distress Abdomen: soft, gravid, non-tender, no rebound or guarding Extremities: no edema BLE Detailed Labor and Delivery Exam Dilation (cm): 1-2 Effacement (%): 0 Cervix position: posterior station: -4 Consistency: medium Presentation: Vertex Membranes: intact monitor accelerations: 15x15 monitor decelerations: None care home variability: Moderate (11-25) Contraction frequency (min): no ctx pattern OB Results Labs 10/13/25 09:50 Labs: Short CBC 10/13/25 Range/Units 09:50 WBC 7.3 (3.6-11.0) Thou/mm3 Hgb 12.2 (12.0-16.0) g/dL Hct 35.9 L (36.0-46.0) % Plt Count 195 (140-440) Thou/mm3 OB Assessment & Plan Assessment and Plan (1) Encounter for induction of labor: Status: Acute Assessment and plan: Steph is a 30yo with SIUP at 37&6wk presenting for IOL for: CHTN treated with 2 medications. SCE: 1-2/thick/high. Vitals wnl, benign exam. Reassuring assessment overall. PMhx/PNC significant for: -Current BMI 38.6 -CHTN treated with nifedipine 30mg PO XL QD and labetalol 400mg PO BID, ASA 162mg PO QD. 24hr UP 220mg in July. -1hr glucola 144, no 3hr GTT. -PNC with Dr. Harvey Plan: -Admit to L&D -Establish IV, routine labs. Will do an initial fingerstick glucose test. -Intermittent FHR monitoring -Regular diet [id number], then clear liquid diet in labor -Continue nifedipine and labetalol current regimen -Counseled/consented re: iol and -GBS status: positive. Begin abx ppx once 4cm dilated. -IOL initiated with cervical rodriguez balloon (40cc NS in intra-uterine balloon only, well tolerated) and cytotec 25mcg PV. Will continue cytotec PV Q4hr and await rodriguez balloon falling out. -Anticipate -Safe to proceed Ana Ricci MD (2) Chronic benign essential hypertension, antepartum: Status: Acute (3) 37 weeks gestation of : Status: Acute (4) Obesity affecting in third trimester: Status: Acute (4) Obesity affecting in third trimester Qualifiers: Obesity type affecting : unspecified obesity Qualified Code(s): O 99.213 - Obesity complicating , third trimester
[2025-10-13] MEDS: NIFEdipine XL 30 MG TABCR PO (12:06)
--- NOTE | 2025-10-13 14:42 | PD.LDPN ---
Documentation for date of: 10/13/25 OB Labor Progress Note Pelvic Exam Dilation (cm): 4 Effacement (%): 50 station: -2 Amniotic membrane status: Ruptured Contractions Monitor mode: External Contraction frequency: 2-3 Contraction intensity: Mild Status status: Category l Assessment and Plan Comments: Intrapartum Note Steph noted a gush of fluid and then continued leaking- sure SROM (chucks soaked). Only feeling mild cramping. Vitals wnl, afebrile Cat I FHRT Cervical rodriguez balloon tugged and easily came out. SCE: /-2, soft/mid. 4hr post-cytotec, will start IV pitocin and titrate per protocol Discussed ok to request epidural whenever she wishes CEFM Safe to proceed Ana Ricci MD
[2025-10-13] MEDS: OXYTOCIN in NS 30 units 30 UNIT/500 ML BAG IV (15:19)
[2025-10-13] MEDS: OXYTOCIN in NS 20 units 20 UNIT/1,000 ML BAG 125 UNIT IV (19:28)
--- NOTE | 2025-10-13 19:51 | PD.LDDELS ---
Data (Bhatti) Data Hx Section: No : 3 Term: 2 : 0 Livin Abortions: Spontaneous & Theraputic: 0 Delivery Data (Bhatti) Labor Data Initiation of labor: Induction Induction/Augmentation Agent: Cytotec-Vaginal, Cervical Balloon and Pitocin ROM date: 10/13/25 ROM time: 13:49 Amniotic membrane rupture type: Spontaneous Amniotic fluid description: Clear Delivery Data Onset of labor date: 10/13/25 Onset of labor time: 15:00 Complete dilation date: 10/13/25 Complete dilation time: 19:04 delivery date: 10/13/25 delivery time: 19:26 Placenta delivery date: 10/13/25 Placenta delivery time: 19:33 Stage 1 total time: Labor - Stage 1 Duration 4 hours and 4 minutes Delivered by: Ana Ricci Delivery nurse: jamaal perry Neworn nurse: paul garcia rn Oversize Load Pilot Escort at delivery: No Support person(s) at delivery: maternal mother father of the baby Other staff at delivery: oma verduzco rn Delivery Method Delivery method: Normal Vaginal Delivery Presentation: Vertex Anesthesia Type Anesthesia Type: Epidural Placenta Placenta delivery description: Spontaneous cord blood collection: Cord Blood Type EBL Estimated blood loss (ml): 150 Umbilical Cord cord description: 3 Vessels Additional Procedures Steph is a 30yo s/p uncomplicated at 37&6wk after undergoing iol for CHTN, delivering at 1926 on 10/13/2025. On presentation, SCE was 1-2/thick/high. She progressed with rodriguez cervical balloon and PV cytotec, SROM and then pitocin augmentation to C/C/+2 at which point she began pushing. She received an epidural less than an hour before delivery. With good maternal pushing efforts, infant's head delivered OA and restituted CARLOS. One tight nuchal cord reduced. Right anterior shoulder delivered easily followed by posterior shoulder and corpus. Infant had spontaneous cry and was vigorous. Apgars 8/9. placed on maternal abdomen where nose/mouth were suctioned and infant dried/stimulated. After approximately 2 minutes, cord was clamped x2 and cut by FOB. Cord blood collected for typing. With fundal massage and cord traction, placenta delivered spontaneously and intact with 3 vessel centrally inserted cord. Trailing membranes gently teased out in their entirety. Bimanual massage performed and IV pitocin given per protocol with fundus then firm at u-2cm and hemostasis noted. Inspection of perineum and vagina revealed no lacerations. Small trickle of blood, so sweep just within cervix/MALINA performed which retrieved a very small amount of clot. All counts correct x2. Mom and were doing well when I left the room. Ana Ricci MD Complications Complications: none Data (Bhatti) [place] Data order: 1 's gender: Female Identification band number: [id number] 1 minute: 8 5 minutes: 9
[2025-10-13] MEDS: DOCUSATE SOD 100 MG CAPSULE PO (21:58)
[2025-10-13] MEDS: LABETALOL 100 MG TABLET 400 MG PO (21:59)
[2025-10-14] VITALS (8 sets, daily range): BP systolic 113–147; BP diastolic 69–91; PULSE 65–81; RESP 16–18; TEMP 36.6–36.8; O2SAT 98
[2025-10-14] MEDS: IBUPROFEN TAB 400 MG TABLET 800 MG PO (00:19)
[2025-10-14 06:29] LABS: Basophils # (Auto) 0.0 Thou/mm3 (0.0-0.2); Basophils % (Auto) 0 % (0-2.5); Eosinophils # (Auto) 0.1 Thou/mm3 (0.0-0.5); Eosinophils % (Auto) 1 % (0-10); Hematocrit 33.1 % (36.0-46.0); Hemoglobin 11.2 g/dL (12.0-16.0); Immature Granulocytes Auto 0.07 Thou/mm3 (0.00-0.00); Lymphocytes # (Auto) 1.8 Thou/mm3 (1.0-4.8); Lymphocytes % (Auto) 16 % (10-50); Mean Corpuscular HGB Conc 33.8 g/dl (31.0-37.0); Mean Corpuscular Hemoglobin 30.4 pg (25.0-35.0); Mean Corpuscular Volume 90 fL (80-100); Monocytes # (Auto) 0.6 Thou/mm3 (0.0-0.8); Monocytes % (Auto) 5 % (0-12); Neutrophils # (Auto) 8.4 Thou/mm3 (1.8-7.7); Neutrophils % (Auto) 77 % (37-80); Nucleated Red Blood Cell # 0.00 Thou/mm3 (0.00-0.00); Nucleated Red Blood Cell % 0 /100 WBC (0); Platelet Count 184 Thou/mm3 (140-440); RDW Standard Deviation 45.3 fL (36.4-46.3); Red Blood Count 3.69 Miln/mm3 (4.00-5.20); White Blood Count 11.0 Thou/mm3 (3.6-11.0)
--- NOTE | 2025-10-14 08:46 | PC.NURSE ---
SPOKE TO DR. CHAVEZ THIS MORNING MADE HIM AWARE PTS BP 119/72 HR 74, ORDER TO HOLD LABETALOL AND PROCARDIA THIS MORNING, REASSESS BP THIS AFTERNOON. ORDER RECEIVED, READ BACK AND CARRIED OUT.
[2025-10-14] MEDS: DOCUSATE SOD 100 MG CAPSULE PO ×2 (08:54→20:48)
--- NOTE | 2025-10-14 09:01 | PD.LDPPPRG ---
Subjective Subjective Interval history: Delivery type: Patient doing well this morning. No acute complaints. Ambulating, tolerating p.o., and voiding without difficulty. HTN/Pre-E screen negative: No CP, SOB, SOTO, visual changes, RUQ pain. : Yes Lochia: diminishing Bowel: Flatus + / BM + UOP: Adequate Exam Vital Signs Temp Pulse Resp BP Pulse Ox O2 Del Method 98.1 F 74 16 119/72 98 Room Air 10/14/25 08:00 10/14/25 08:48 10/14/25 08:00 10/14/25 08:48 10/14/25 08:00 10/14/25 08:00 Constitutional Constitutional: no acute distress Routine HEENT Exam Head: Present normocephalic and atraumatic Eye: Present EOMI and PERRL ENT: Present mucous membranes moist Routine Neck Exam Neck: Present supple and trachea midline Routine Respiratory Exam Respiratory: Present chest non-tender, lungs clear, normal breath sounds and no resp distress Routine Cardiovascular Exam Cardiovascular: Present RRR Routine Abdominal Exam Abdominal: Present soft and normoactive bowel sounds Routine Extremities Exam Extremities: Present full ROM Routine Skin Exam Skin: Present intact, dry and warm Routine Neurological Exam Neurological: Present alert, oriented X3 and CN II-XII intact Routine Psychiatric Exam Psychiatric: Present normal affect and normal thought process Objective Labs 10/14/25 04:20 Labs: Laboratory Results - last 24 hr 10/13/25 10/14/25 09:50 04:20 WBC 7.3 11.0 D RBC 4.04 3.69 L Hgb 12.2 11.2 L Hct 35.9 L 33.1 L MCV 89 90 MCH 30.2 30.4 MCHC 34.0 33.8 RDW Std Deviation 45.4 45.3 Plt Count 195 184 Neut % (Auto) 69 77 Lymph % (Auto) 22 16 [place] % (Auto) 6 5 Eos % (Auto) 2 1 Baso % (Auto) 0 0 Neut # (Auto) 5.0 8.4 H Lymph # (Auto) 1.6 1.8 [place] # (Auto) 0.5 0.6 Eos # (Auto) 0.1 0.1 Baso # (Auto) 0.0 0.0 Immature Gran # (Auto) 0.10 H 0.07 H Absolute Nucleated RBC 0.00 0.00 Immature Gran % 1 H 1 H Nucleated RBC % 0 0 Syphilis Serology Nonreactive Blood Type O Positive Antibody Screen NEGATIVE Blood Bank Wristband ID Yes Assessment & Plan Problem List (1) Encounter for induction of labor: Status: Acute (2) Chronic benign essential hypertension, antepartum: Status: Acute (3) 37 weeks gestation of : Status: Acute (4) Obesity affecting in third trimester: Status: Acute Assessment and plan: 1. Continue routine /post-op care 2. Labs reviewed, cbc appropriate 3. Remove dressing/Burns 4. Encourage to ambulate, shower 5. Encourage PO intake, breast feeding 6. Will hold antihypertensive meds as patient is running low, will continue to monitor blood pressures through the day and anticipate discharge home tomorrow Time Spent With Patient Time: Total time spent is greater than 50% in coordination of care (as documented) at patient's floor/unit and/or counseling patient:
--- NOTE | 2025-10-14 12:16 | PC.NURSE ---
DR. CHAVEZ MADE AWARE OF PTS BP 147/91 HR 66, ORDER RECEIVED FOR PROCARDIA 30MG X1. ORDER RECEIVED, READ BACK AND CARRIED OUT.
[2025-10-14] MEDS: NIFEdipine XL 30 MG TABCR PO (12:48)
[2025-10-14] MEDS: LABETALOL 100 MG TABLET 400 MG PO (20:48)
--- NOTE | 2025-10-14 22:39 | PC.NURSE ---
[id number] MD Harvey instructed to give the labetalol 400mg after viewing pts current BP and HR.
[2025-10-15 03:17] VITALS: BP 129/77; PULSE 60; RESP 16; TEMP 36.6; O2SAT 97
--- NOTE | 2025-10-15 08:45 | PD.LDPPPRG ---
Subjective Subjective Interval history: Delivery type: , blood pressure meds were held yesterday but patient had rebound hypertension, will resume Patient doing well this morning. No acute complaints. Ambulating, tolerating p.o., and voiding without difficulty. HTN/Pre-E screen negative: No CP, SOB, SOTO, visual changes, RUQ pain. : Yes Lochia: diminishing Bowel: Flatus + / BM + UOP: Voiding freely Exam Vital Signs Temp Pulse Resp BP Pulse Ox O2 Del Method 97.8 F 60 16 129/77 97 Room Air 10/15/25 03:17 10/15/25 03:17 10/15/25 03:17 10/15/25 03:17 10/15/25 03:17 10/15/25 03:17 Constitutional Constitutional: no acute distress Routine HEENT Exam Head: Present normocephalic and atraumatic Eye: Present EOMI and PERRL ENT: Present mucous membranes moist Routine Neck Exam Neck: Present supple and trachea midline Routine Respiratory Exam Respiratory: Present chest non-tender, lungs clear, normal breath sounds and no resp distress Routine Cardiovascular Exam Cardiovascular: Present RRR Routine Abdominal Exam Abdominal: Present soft and normoactive bowel sounds Routine Extremities Exam Extremities: Present full ROM Routine Skin Exam Skin: Present intact, dry and warm Routine Neurological Exam Neurological: Present alert, oriented X3 and CN II-XII intact Routine Psychiatric Exam Psychiatric: Present normal affect and normal thought process Objective Labs 10/14/25 04:20 Assessment & Plan Problem List (1) Encounter for induction of labor: Status: Acute (2) Chronic benign essential hypertension, antepartum: Status: Acute (3) 37 weeks gestation of : Status: Acute (4) Obesity affecting in third trimester: Status: Acute (5) Vaginal delivery: Status: Acute Assessment and plan: PPD/POD#2 1. Continue routine care 2. Transition to PO meds. 3. Encourage to ambulate/ breast-feed 4. Anticipate discharge home today. 5. For the morning dose will give her only Procardia and hold labetalol, anticipate discharge home on Procardia only may need to adjust dose as needed Time Spent With Patient Time: Total time spent is greater than 50% in coordination of care (as documented) at patient's floor/unit and/or counseling patient:
[2025-10-15 08:47] VITALS: BP 109/73; PULSE 76
[2025-10-15 08:55] VITALS: BP 109/73; PULSE 76; RESP 16; TEMP 37.1; O2SAT 97
[2025-10-15] MEDS: DOCUSATE SOD 100 MG CAPSULE PO (09:05)
[2025-10-15 09:06] VITALS: BP 109/73; PULSE 76
[2025-10-15] MEDS: NIFEdipine XL 30 MG TABCR PO (09:06)
[2025-10-15 12:59] VITALS: BP 132/74; PULSE 86; RESP 14; TEMP 36.9; O2SAT 98
--- NOTE | 2025-10-15 14:55 | PC.NURSE ---
patient received TDap on 09/06/25. she refused flu shot at this time and will get it later at pharmacy.
[2025-10-15 15:52] VITALS: BP 128/79; PULSE 67; RESP 18; TEMP 36.9; O2SAT 97
== END 2025-10-15 17:00 | disposition home or self-care (01) | DRG 807 ==
LOC: S4SX 13:40 → S4NX 21:51
PROVIDERS: Admitting Provider Obstetrics & Gynecology; PCP Family Medicine; Visit Provider Obstetrics & Gynecology
DX: O10.02 Pre-existing essential hypertension complicating childbirth (principal); Z37.0 Single live birth; Z3A.37 37 weeks gestation of pregnancy; O69.1XX0 Labor and delivery complicated by cord around neck, with compression, not applicable or unspecified; O99.824 Streptococcus B carrier state complicating childbirth; O99.214 Obesity complicating childbirth; Z90.49 Acquired absence of other specified parts of digestive tract
CPT/HCPCS: 36415; 59409; 85025; 86780; 86850; 86900; 86901; 94762; J2590; J2795; J3010; J7120; A9270

== ENCOUNTER 2025-10-25 09:58 | Outpatient (AMB) | payer BC, MEDICAID, SELFPAY ==
--- NOTE | 2025-10-25 10:07 | GYNCLNT_ITS ---
Vital Signs 10/25/25 10:08 Height 1.68 m Height Method Stated Weight 102.965 kg Weight Measurement Method Standing Scale BMI 36.4 BP 135/95 H Blood Pressure Source Automatic Cuff Blood Pressure Location Right Upper Arm Position Sitting Respiration 18 Pulse 101 H Pulse Source Monitor Temp 97.2 F Temp Source Temporal Artery Scan Pulse Oximetry (%) 98 Oxygen Delivery Method Room Air Allergies/Home Meds Allergies & Medications Allergies No Known Allergies Allergy (Verified 10/25/25 10:09) Medication Reconciliation vits no.124-ferrous fum 27 mg iron-folic acid 800 mcg tablet ( Vitamin) tab 10/30/23 [History Confirmed 10/25/25] blood pressure monitor #1 ea 03/30/25 [Rx Confirmed 10/25/25] nifedipine 30 mg tablet,extended release 30 mg PO QDAY 30 days #30 tabs 08/18/25 [Rx Confirmed 10/25/25] Intake Visit Data Collection New Patient or Established: Established Patient (seen at [facility] within 3 years) Reason for Visit:: [facility] Seen by Clinical Staff ONLY (RN/MA): No Macadam Raker Required: No Do You Feel Safe at Home: Yes Authorities Contacted: N/A PCP or OBGYN visit in last 3 months: Yes Date of Last PCP or OBGYN visit: 10/06/25 Hx Now: No Are you currently on any form of Control: No Pain Present Currently: No Pain Scale Used: Gaming-Dixon/Numerical Pain scale:: 0 Smoking Status Smoking Status: Never smoker Immunizations Flu Vaccine in the Last 12 Months: Yes Date of most recent flu vaccination: 10/06/25 Flu Vaccine Exclusion Criteria: Already Received [employer]: Past Medical History Past Medical History: No Hx Neurological Disorders, No Hx Cardiac Disorders, No Hx Cancer, No Hx Blood Disorders, Yes Hx Gastrointestinal Disorders, No Hx Renal Disease, No Hx Diabetes Mellitus Type 1 and No Hx Diabetes Mellitus Type 2 Questionnaires Covid-19 Vaccine Questionnaire Has patient been vacinated for Covid-19 Have you been vacinated for Covid-19: No PHQ-9 PHQ-2 Over the last 2 weeks, how often have you been bothered by any of the following problems? 1. Little interest or pleasure in doing things: not at all 2. Feeling down, depressed, or hopeless: not at all Total score: 0 PHQ-9 3. Trouble falling or staying asleep, or sleeping too much: Not at all 4. Feeling tired or having little energy: Not at all 5. Poor appetite or overeating: Not at all 6. Feeling bad about yourself - or that you are a failure or have let yourself or your family down: Not at all 7. Trouble concentrating on things, such as reading the newspaper or watching television: Not at all 8. Moving or speaking so slowly that other people could have noticed? - Or the opposite - being so fidgety or restless that you have been moving around a lot more than usual: not at all 9. Thoughts that you would be better off or of hurting yourself in some way: Not at all Total score: 0 If you checked off any problems, how difficult have these problems made it for you to do your work, take care of things at home, or get along with other people?: not difficult at all Source: Developed by Drs. Chilango Danielle, Fabi Rod, Austen Milian and colleagues, with an educational caryl from [employer]. 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 Abuse History Do You Feel Safe at Home: Yes History of Present Illness HPI Narrative Steph Flower presents for follow-up after delivering on October 13 of this month. She is currently taking nifedipine (Procardia) for blood pressure management, having discontinued one of her previous blood pressure medications. Her current blood pressure is well-controlled at 120/70s on the single medication regimen. She reports adherence to her prescribed nifedipine therapy and tolerates the once-daily dosing well. She has a recent delivery on October 13, 2025. The patient has been taking Procardia (nifedipine) once daily. One medication was discontinued. ROS: Negative except as stated above, limited to [employer] and pertinent complaints. Exam General General Appearance: alert, in no apparent distress and healthy appearing Head Head exam: atraumatic Neck Neck exam: Present normal inspection and trachea midline Chest Chest inspection: Present normal inspection and symmetric chest wall rise External exam: Present normal external exam; Absent tenderness Neuro Neurological exam: Present oriented X3 Psych Psychiatric exam: Present normal affect and normal mood Office Procedures [facility] LOC & Office Proc's Nursing/Assessment Patient Status: Established Patient OB Clinic Nursing Assessment: Medication Reconciliation, Update PMH in EMR and Vital Signs OB Clinic Coordination of Care: Complex Care and Chronic Disease 1-5, Education Complex Pt/Fam, Consent,records obtained, informed consent, Results/Orders obtained and Staff clarify orders Established Patient Charge Established Patient Point Assignment: 95 Established Patient Point Charge: EP Level 3 (80-115) Assessment & Plan Diagnosis / Problem List (1) Gestational [-induced] hypertension without significant proteinuria, third trimester: Status: Acute Plan Hypertension: - Patient is currently 12 days following delivery on October 13. - Blood pressure is well-controlled at 120/70 mmHg on nifedipine monotherapy. - One antihypertensive medication was previously discontinued, leaving only nifedipine for current management. - Blood pressure control appears stable on current regimen. Plan: - Continue nifedipine once daily through October (6 weeks ). - Follow-up appointment scheduled for first week of December to reassess blood pressure. - Plan to discontinue antihypertensive medication at December visit if blood pressure remains stable.
[2025-10-25 10:08] VITALS: BP 135/95; PULSE 101; RESP 18; TEMP 36.2; O2SAT 98; BMI 36.4
== END 2025-10-25 10:14 | disposition home or self-care (01) ==
PROVIDERS: PCP Family Medicine; Referring Provider Family Medicine; Supervising Provider Obstetrics & Gynecology; Visit Provider Obstetrics & Gynecology
DX: Z39.2 Encounter for routine postpartum follow-up (principal); O13.5 Gestational [pregnancy-induced] hypertension without significant proteinuria, complicating the puerperium
CPT/HCPCS: 99213; G0463